=== PATIENT | male | born 1960 | race Caucasian/White ===

== ENCOUNTER → 2017-01-31 | Outpatient (CLI) | payer BC ==
[2017-01-31 12:40] LABS: CH 31.5; HDW 3.15; HGB 13.5 gm/dL (13.0-17.5); MCH 30.4 pg (25.0-35.0); MCHC 34.6 g/dL (31.0-37.0); MCV 87.9 fL (80.0-100.0); Mean Platelet Volume 7.3; RBC 4.43 m/uL (4.30-5.90); RDW 13.9 % (11.5-15.5); WBC 5.3 k/uL (3.8-10.6)
[2017-01-31 12:43] LABS: Appearance,Urine Clear (Clear); Bilirubin,Urine Negative (Negative); Glucose,Urine (UA) Negative (Negative); Ketones,Urine Negative (Negative); Leukocyte Esterase,Urine Negative (Negative); Nitrite,Urine Negative (Negative); PH, Urine 6.5 (5.0-8.0); Protein,Urine Negative (Negative); Specific Gravity,Urine 1.019 (1.001-1.035); UA Billing (MACRO vs. MICRO) CHEM; Urobilinogen,Urine <2.0 mg/dL (<2.0)
[2017-01-31 12:55] LABS: ALT 46 U/L (21-72); AST 31 U/L (17-59); Alkaline Phosphatase 64 U/L (38-126); Anion Gap 10 mmol/L; Blood Urea Nitrogen 22 mg/dL (9-20); Calcium 8.8 mg/dL (8.4-10.2); Carbon Dioxide 29 mmol/L (22-30); Chloride 105 mmol/L (98-107); Cholesterol 148 mg/dL (<200); Glucose 95 mg/dL (74-99); HDL Cholesterol 48 mg/dL (40-60); Non-African American GFR(MDRD) >60 (>60 ml/min/1.73 sqM); Potassium 3.1 mmol/L (3.5-5.1); Sodium 144 mmol/L (137-145); Total Bilirubin 1.3 mg/dL (0.2-1.3); Total Protein 7.1 g/dL (6.3-8.2); Triglycerides 106 mg/dL (<150)
[2017-01-31 14:04] LABS: Prostate Specific Antigen 1.87 ng/mL (0.00-4.00)
== END ==
LOC: LABWHC1 12:15
PROVIDERS: ATTEND Family Medicine
DX: Z00.01 Encounter for general adult medical examination with abnormal findings (principal); I10 Essential (primary) hypertension
CPT/HCPCS: 36415; 80053; 80061; 81003; 84153; 84439; 84443; 85027

== ENCOUNTER 2017-08-09 14:42 | Inpatient (IN) | payer BC ==
[2017-08-09] MEDS ORDERED: SODIUM CHLORIDE 0.9% 500 ML IV STA (14:45)
[2017-08-09] MEDS ORDERED: IPRATROPIUM-ALBUTEROL 3 ML NEB INHALATION STA (14:45)
[2017-08-09] MEDS ORDERED: DEXAMETHASONE SOD PHOSPHATE 10 MG/ML 1 ML VIAL IV STA (14:56)
--- NOTE | 2017-08-09 14:56 | ED ---
General Adult HPI - General Stated complaint: Difficulty Breathing Time Seen by Provider: 08/09/17 14:44 Source: patient, family, EMS, RN notes reviewed Mode of arrival: EMS Limitations: no limitations - History of Present Illness Initial comments: 56-year-old male presents for evaluation of cough and difficult to breathing. Patient states he's had these symptoms for approximately 3 days. Also had some nasal congestion. His cough is been dry, worse while lying flat. Patient did return from [place], along airplane flights. He states his symptoms began prior to this. He was sent from urgent care today with low oxygen level, his oxygen was 90-92% on room air. He has no known history of asthma or COPD. Patient does report subjective fever and chills. Denies chest pain. States his nasal congestion is improving but cough and shortness of breath has been worsening. Only past medical history is hypertension. - Related Data Home Medications Medication Instructions Recorded Confirmed Ascorbic Acid [Vitamin C] 500 mg PO DAILY 08/09/17 08/09/17 Losartan/Hydrochlorothiazide 1 tab PO DAILY 08/09/17 08/09/17 [Losartan-Hctz 100-25 mg Tab] Metoprolol Tartrate [Lopressor] 50 mg PO HS 08/09/17 08/09/17 [employer]-3 Fatty Acids/Fish Oil [Fish 1 cap PO DAILY 08/09/17 08/09/17 Oil 1,000 mg Softgel] Vitamin B Complex 1 cap PO DAILY 08/09/17 08/09/17 Vitamin E (Dl,Tocopheryl Acet) 400 unit PO DAILY 08/09/17 08/09/17 [Vitamin E] amLODIPine [Norvasc] 10 mg PO DAILY 08/09/17 08/09/17 Allergies Allergy/AdvReac Type Severity Reaction Status Date / Time No Known Allergies Allergy Verified 08/09/17 15:13 Review of Systems ROS Statement: Those systems with pertinent positive or pertinent negative responses have been documented in the HPI. ROS Other: All systems not noted in ROS Statement are negative. Past Medical History Past Medical History: Hypertension History of Any Multi-Drug Resistant Organisms: None Reported Past Surgical History: No Surgical Hx Reported Past Anesthesia/Blood Transfusion Reactions: No Reported Reaction Past Psychological History: No Psychological Hx Reported Smoking Status: Never smoker Past Alcohol Use History: None Reported Past Drug Use History: None Reported - Past Family History Father Family Medical History: Myocardial Infarction ([place]) Additional Family Medical History / Comment(s): [place] at age 50 Mother Family Medical History: Diabetes Mellitus General Exam Limitations: no limitations General appearance: alert, in no apparent distress Head exam: Present: atraumatic, normocephalic Eye exam: Present: normal appearance, PERRL ENT exam: Present: mucous membranes dry Neck exam: Present: normal inspection. Absent: tenderness, meningismus Respiratory exam: Present: respiratory distress, wheezes, rhonchi, prolonged expiratory Cardiovascular Exam: Present: normal rhythm, tachycardia GI/Abdominal exam: Present: soft. Absent: distended, tenderness Extremities exam: Present: normal inspection, full ROM, normal capillary refill. Absent: pedal edema, calf tenderness Back exam: Present: normal inspection Neurological exam: Present: alert, oriented X3, CN II-XII intact. Absent: motor sensory deficit Psychiatric exam: Present: normal affect, normal mood Skin exam: Present: warm, dry, intact. Absent: cyanosis, diaphoretic Course Vital Signs 08/09/17 08/09/17 08/09/17 14:45 15:33 15:43 Temperature 99.3 F Pulse Rate 101 H 91 100 Respiratory 18 Rate Blood Pressure 163/72 O2 Sat by Pulse 95 Oximetry 08/09/17 15:50 Temperature Pulse Rate 67 Respiratory 18 Rate Blood Pressure 141/63 O2 Sat by Pulse 94 L Oximetry - Reevaluation(s) Reevaluation #1: 08/09/17 16:52 Patient continues to require simple oxygen while the emergency department. Pulse ox 93-95 on 2 L Medical Decision Making - Medical Decision Making 56-year-old presenting with cough and congestion. Patient was at urgent care found to be hypoxic. Transferred for further evaluation. Patient does have a spastic cough, wheezing throughout both lung rossi. Chest x-ray is negative for focal pneumonia. Patient did have recent travel from [place], d-dimer is negative. No concern at this time for pulmonary embolism. Patient does improve with nebulized topical natural. He is given IV steroids and emergency prompt or laboratory studies reveal a serum potassium 2.7 which is replaced both orally and IV. Patient will benefit from observation with continued advised albuterol, steroids, potassium replacement and reevaluation in the morning. Diagnosis: Acute bronchitis with hypoxia, hypokalemia - Lab Data Result diagrams: 08/09/17 15:01 08/09/17 15:01 Lab Results 08/09/17 08/09/17 08/09/17 Range/Units 15:01 15:01 15:01 WBC 9.6 (3.8-10.6) k/uL RBC 4.62 (4.30-5.90) m/uL Hgb 14.3 (13.0-17.5) gm/dL Hct 39.8 (39.0-53.0) % MCV 86.2 (80.0-100.0) fL MCH 30.9 (25.0-35.0) pg MCHC 35.8 (31.0-37.0) g/dL RDW 13.7 (11.5-15.5) % Plt Count 389 (150-450) k/uL Neutrophils % 71 % Lymphocytes % 17 % Monocytes % 6 % Eosinophils % 3 % Basophils % 0 % Neutrophils # 6.8 (1.3-7.7) k/uL Lymphocytes # 1.6 (1.0-4.8) k/uL Monocytes # 0.6 (0-1.0) k/uL Eosinophils # 0.3 (0-0.7) k/uL Basophils # 0.0 (0-0.2) k/uL PT (9.0-12.0) sec INR (<1.2) APTT (22.0-30.0) sec D-Dimer (<0.60) mg/L FEU Sodium 140 (137-145) mmol/L Potassium 2.7 L* (3.5-5.1) mmol/L Chloride 101 (98-107) mmol/L Carbon Dioxide 29 (22-30) mmol/L Anion Gap 10 mmol/L BUN 17 (9-20) mg/dL Creatinine 1.07 (0.66-1.25) mg/dL Est GFR (MDRD) Af Amer >60 (>60 ml/min/1.73 sqM) Est GFR (MDRD) Non-Af >60 (>60 ml/min/1.73 sqM) Glucose 123 H (74-99) mg/dL Calcium 8.5 (8.4-10.2) mg/dL Magnesium 2.1 (1.6-2.3) mg/dL Total Bilirubin 1.5 H (0.2-1.3) mg/dL AST 28 (17-59) U/L ALT 38 (21-72) U/L Alkaline Phosphatase 82 (38-126) U/L Total Creatine Kinase 109 (55-170) U/L CK-MB (CK-2) <0.2 (0.0-2.4) ng/mL CK-MB (CK-2) Rel Index Troponin I <0.012 (0.000-0.034) ng/mL NT-Pro-B Natriuret Pep pg/mL Total Protein 7.0 (6.3-8.2) g/dL Albumin 4.0 (3.5-5.0) g/dL 08/09/17 08/09/17 Range/Units 15:01 15:01 WBC (3.8-10.6) k/uL RBC (4.30-5.90) m/uL Hgb (13.0-17.5) gm/dL Hct (39.0-53.0) % MCV (80.0-100.0) fL MCH (25.0-35.0) pg MCHC (31.0-37.0) g/dL RDW (11.5-15.5) % Plt Count (150-450) k/uL Neutrophils % % Lymphocytes % % Monocytes % % Eosinophils % % Basophils % % Neutrophils # (1.3-7.7) k/uL Lymphocytes # (1.0-4.8) k/uL Monocytes # (0-1.0) k/uL Eosinophils # (0-0.7) k/uL Basophils # (0-0.2) k/uL PT 10.3 (9.0-12.0) sec INR 1.0 (<1.2) APTT 25.0 (22.0-30.0) sec D-Dimer 0.55 (<0.60) mg/L FEU Sodium (137-145) mmol/L Potassium (3.5-5.1) mmol/L Chloride (98-107) mmol/L Carbon Dioxide (22-30) mmol/L Anion Gap mmol/L BUN (9-20) mg/dL Creatinine (0.66-1.25) mg/dL Est GFR (MDRD) Af Amer (>60 ml/min/1.73 sqM) Est GFR (MDRD) Non-Af (>60 ml/min/1.73 sqM) Glucose (74-99) mg/dL Calcium (8.4-10.2) mg/dL Magnesium (1.6-2.3) mg/dL Total Bilirubin (0.2-1.3) mg/dL AST (17-59) U/L ALT (21-72) U/L Alkaline Phosphatase (38-126) U/L Total Creatine Kinase (55-170) U/L CK-MB (CK-2) (0.0-2.4) ng/mL CK-MB (CK-2) Rel Index Troponin I (0.000-0.034) ng/mL NT-Pro-B Natriuret Pep 573 pg/mL Total Protein (6.3-8.2) g/dL Albumin (3.5-5.0) g/dL Disposition Clinical Impression: Acute bronchitis, Hypokalemia Disposition: ADMITTED IP TO THIS HOSP Condition: Stable Referrals: Sanjeev Spivey DO [Primary Care Provider] - 1-2 days Decision to Admit Reason: Admit from EC Decision Date: 08/09/17 Decision Time: 16:54
[2017-08-09] MEDS: SODIUM CHLORIDE 0.9% 1,000 ML IV SCH (15:06)
[2017-08-09 15:15] LABS: Basophils % (A) 0 %; CH 31.5; CHCM 36.7; Eosinophils # (A) 0.3 k/uL (0-0.7); Eosinophils % (A) 3 %; HCT 39.8 % (39.0-53.0); HDW 3.21; HGB 14.3 gm/dL (13.0-17.5); Luc # (Auto) 0.27; Luc % (Auto) 3; Lymphocytes # (A) 1.6 k/uL (1.0-4.8); Lymphocytes % (A) 17 %; MCH 30.9 pg (25.0-35.0); MCHC 35.8 g/dL (31.0-37.0); MCV 86.2 fL (80.0-100.0); Mean Platelet Volume 7.9; Monocytes # (A) 0.6 k/uL (0-1.0); Monocytes % (A) 6 %; Neutrophils # (A) 6.8 k/uL (1.3-7.7); Neutrophils % (A) 71 %; RBC 4.62 m/uL (4.30-5.90); RDW 13.7 % (11.5-15.5); WBC 9.6 k/uL (3.8-10.6); WBC (Perox) 9.97
[2017-08-09 15:25] LABS: Prothrombin Time 10.3 sec (9.0-12.0)
--- NOTE | 2017-08-09 15:26 | XR ---
EXAMINATION TYPE: XR chest 2V DATE OF EXAM: 08/09/2017 COMPARISON: 05/13 15 HISTORY: Short of breath and cough TECHNIQUE: Frontal and lateral views of the chest are obtained. FINDINGS: Heart and mediastinum are normal. Lungs are clear. Diaphragm is normal. There is mild spur ring in the thoracic spine. IMPRESSION: No cardiopulmonary disease. No change.
[2017-08-09 15:35] LABS: ALT 38 U/L (21-72); AST 28 U/L (17-59); Alkaline Phosphatase 82 U/L (38-126); Anion Gap 10 mmol/L; Blood Urea Nitrogen 17 mg/dL (9-20); Calcium 8.5 mg/dL (8.4-10.2); Carbon Dioxide 29 mmol/L (22-30); Chloride 101 mmol/L (98-107); Glucose 123 mg/dL (74-99); Magnesium 2.1 mg/dL (1.6-2.3); Non-African American GFR(MDRD) >60 (>60 ml/min/1.73 sqM); Sodium 140 mmol/L (137-145); Total Bilirubin 1.5 mg/dL (0.2-1.3)
[2017-08-09 15:43] LABS: Potassium 2.7 mmol/L (3.5-5.1)
[2017-08-09 15:52] LABS: Creatine Kinase 109 U/L (55-170)
[2017-08-09 16:05] LABS: Creatine Kinase MB <0.2 ng/mL (0.0-2.4); Troponin I <0.012 ng/mL (0.000-0.034)
[2017-08-09] MEDS: POTASSIUM CHLORIDE 10 MEQ, LIDOCAINE 2% INJ 10 MG in SODIUM CHLORIDE 0.9% 100 ML IVPB SCH ×4 (16:24→21:05)
[2017-08-09] MEDS ORDERED: POTASSIUM CHLORIDE ER 20 MEQ TAB.ER PO STA (16:46)
[2017-08-09] MEDS: AZITHROMYCIN 500 MG TAB PO SCH (18:49)
[2017-08-09] MEDS: METOPROLOL TARTRATE 50 MG TAB PO SCH (21:05)
[2017-08-09] MEDS: guaiFENesin 600 MG TABLET.ER PO SCH (21:06)
[2017-08-09] MEDS: IPRATROPIUM-ALBUTEROL 3 ML NEB INHALATION SCH (21:11)
[2017-08-10] MEDS: SODIUM CHLORIDE 0.9% 1,000 ML IV SCH ×2 (04:07→18:49)
[2017-08-10] MEDS: IPRATROPIUM-ALBUTEROL 3 ML NEB INHALATION SCH ×4 (07:27→20:43)
[2017-08-10] MEDS: predniSONE 20 MG TAB PO SCH (08:46)
[2017-08-10] MEDS: guaiFENesin 600 MG TABLET.ER PO SCH ×3 (08:46→21:48)
[2017-08-10] MEDS: LOSARTAN-HCTZ 50-12.5 MG 1 EACH TAB PO SCH (08:46)
[2017-08-10] MEDS: amLODIPine 10 MG TAB PO SCH (08:46)
[2017-08-10] MEDS: AZITHROMYCIN 500 MG TAB PO SCH (08:46)
[2017-08-10 09:31] LABS: Basophils % (A) 0 %; CH 31.2; CHCM 35.2; Eosinophils % (A) 0 %; HCT 40.5 % (39.0-53.0); HDW 3.21; HGB 14.1 gm/dL (13.0-17.5); Luc # (Auto) 0.05; Luc % (Auto) 0; Lymphocytes # (A) 0.7 k/uL (1.0-4.8); Lymphocytes % (A) 5 %; MCHC 34.7 g/dL (31.0-37.0); MCV 89.3 fL (80.0-100.0); Mean Platelet Volume 7.9; Monocytes # (A) 0.5 k/uL (0-1.0); Monocytes % (A) 3 %; Neutrophils % (A) 92 %; RBC 4.53 m/uL (4.30-5.90); RDW 13.9 % (11.5-15.5); WBC 15.2 k/uL (3.8-10.6); WBC (Perox) 15.88
[2017-08-10 09:49] LABS: ALT 35 U/L (21-72); AST 25 U/L (17-59); Alkaline Phosphatase 74 U/L (38-126); Anion Gap 13 mmol/L; Blood Urea Nitrogen 22 mg/dL (9-20); Calcium 8.8 mg/dL (8.4-10.2); Carbon Dioxide 23 mmol/L (22-30); Chloride 108 mmol/L (98-107); Glucose 207 mg/dL (74-99); Non-African American GFR(MDRD) >60 (>60 ml/min/1.73 sqM); Sodium 144 mmol/L (137-145); Total Bilirubin 0.7 mg/dL (0.2-1.3); Total Protein 6.6 g/dL (6.3-8.2)
[2017-08-10 09:59] LABS: Potassium 2.8 mmol/L (3.5-5.1)
[2017-08-10] MEDS ORDERED: Potassium Replacement Protocol 1 EACH MISC MISCELLANE PRN (10:25)
[2017-08-10] MEDS: POTASSIUM CHLORIDE ER 20 MEQ TAB.ER PO SCH ×3 (11:35→15:36)
--- NOTE | 2017-08-10 12:52 | P.CNPUL ---
History of Present Illness Consult date: 08/10/17 Reason for consult: dyspnea, cough Chief complaint: Shortness of breath History of present illness: This is a 56-year-old male who presented to the emergency department from an urgent care clinic. The patient states that he was short of breath and coughing. He went to the urgent care and his oxygen saturation was 87% and he was told he needed to come to the emergency room. The patient states he was recently traveling and just got home from [place] 3 days ago. He states he started feeling ill 4 days ago. He did have chills and sweats at home but denies fever. He does complain of wheezing and chest tightness. He has a cough which is nonproductive of phlegm. He does have sinus and chest congestion. He is a lifelong never smoker. 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 He does have a dog in the home. He has occasional seasonal ALLERGIES. He does not take anything for ALLERGIES. He has never been hospitalized for his breathing. He has no history of asthma or COPD. He has never had a pulmonary function test or seen a dust operator in the past. Review of Systems All systems: negative Past Medical History Past Medical History: Hypertension History of Any Multi-Drug Resistant Organisms: None Reported Past Surgical History: No Surgical Hx Reported Past Anesthesia/Blood Transfusion Reactions: No Reported Reaction Past Psychological History: No Psychological Hx Reported Smoking Status: Never smoker Past Alcohol Use History: None Reported Past Drug Use History: None Reported - Past Family History Father Family Medical History: Myocardial Infarction ([place]) Additional Family Medical History / Comment(s): [place] at age 50 Mother Family Medical History: Diabetes Mellitus Medications and Allergies Home Medications Medication Instructions Recorded Confirmed Type Ascorbic Acid [Vitamin C] 500 mg PO DAILY 08/09/17 08/09/17 History Losartan/Hydrochlorothiazide 1 tab PO DAILY 08/09/17 08/09/17 History [Losartan-Hctz 100-25 mg Tab] Metoprolol Tartrate [Lopressor] 50 mg PO HS 08/09/17 08/09/17 History [employer]-3 Fatty Acids/Fish Oil [Fish 1 cap PO DAILY 08/09/17 08/09/17 History Oil 1,000 mg Softgel] Vitamin B Complex 1 cap PO DAILY 08/09/17 08/09/17 History Vitamin E (Dl,Tocopheryl Acet) 400 unit PO DAILY 08/09/17 08/09/17 History [Vitamin E] amLODIPine [Norvasc] 10 mg PO DAILY 08/09/17 08/09/17 History Allergies Allergy/AdvReac Type Severity Reaction Status Date / Time No Known Allergies Allergy Verified 08/09/17 15:13 Physical Exam Osteopathic Statement: *. No significant issues noted on an osteopathic structural exam other than those noted in the History and Physical/Consult. Vitals: Vital Signs Temp Pulse Pulse Resp BP BP Pulse Ox 08/10/17 12:00 97.3 F L 89 18 169/72 93 L 08/10/17 11:04 84 08/10/17 10:58 76 08/10/17 08:00 82 18 08/10/17 07:49 97.8 F 82 18 144/69 96 08/10/17 07:36 72 08/10/17 07:28 72 08/10/17 04:00 97.6 F 68 16 145/79 96 08/10/17 00:00 97.6 F 80 18 127/62 95 08/09/17 21:19 88 08/09/17 21:11 80 08/09/17 19:44 18 08/09/17 18:00 97.3 F L 18 142/63 94 L 08/09/17 17:47 97.6 F 82 18 133/59 92 L 08/09/17 15:50 67 18 141/63 94 L 08/09/17 15:43 100 08/09/17 15:33 91 08/09/17 14:45 99.3 F 101 H 18 163/72 95 Intake and Output 08/09/17 08/10/17 08/10/17 22:59 06:59 14:59 Intake Total 240 Balance 240 Intake: Oral 240 Other: Voiding Method Toilet Toilet Toilet Gen.: Patient is alert and oriented 3, no acute distress Cardiovascular: Regular rate and rhythm, S1/S2 Lungs: Diffuse bilateral wheezing Abdomen: Soft nontender nondistended positive bowel sounds Extremities: No edema Results - Laboratory Findings CBC and BMP: 08/10/17 08:49 08/10/17 08:49 PT/INR, D-dimer PT 10.3 sec (9.0-12.0) 08/09/17 15:01 INR 1.0 (<1.2) 08/09/17 15:01 D-Dimer 0.55 mg/L FEU (<0.60) 08/09/17 15:01 Abnormal lab findings: Abnormal Labs 08/09/17 08/10/17 08/10/17 15:01 08:49 08:49 WBC 15.2 H Neutrophils # 14.0 H Lymphocytes # 0.7 L Potassium 2.7 L* 2.8 L* Chloride 108 H BUN 22 H Glucose 123 H 207 H Total Bilirubin 1.5 H - Diagnostic Findings Chest x-ray: report reviewed, image reviewed Assessment and Plan Plan: Acute hypoxemia Acute bronchitis Bronchospasm Dyspnea Cough Recent travel to [place] Seasonal ALLERGIES Hypertension Leukocytosis likely reactive to steroids Obesity Hypokalemia Maintain saturation greater than equal to 90% Add Pulmicort Continue duo nebs Mucinex Check IgE IVF Replace K Sputum culture if able to expectorate Repeat chest x-ray in a.m. GI and DVT prophylaxis Negative d-dimer no need for CT PE protocol Encourage ambulation Incentive spirometry Flutter therapy Thank you for this consultation we'll continue to follow along
[2017-08-10] MEDS ORDERED: OSELTAMIVIR 75 MG CAP PO SCH (14:15)
--- NOTE | 2017-08-10 17:55 | P.HPIM ---
History of Present Illness H&P Date: 08/10/17 Chief Complaint: cough and shortness of breath 54-year-old gentleman patient of Dr. Spivey. He has underlying history of controlled hypertension and obesity, who was last admitted for shortness of breath, fever and dry cough in 2014 presents with similar symptoms of nonproductive cough associated with shortness of breath, chills and generalized weakness following his trip to [place]. 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 Patient denies any sick contact. He does endorse sinus pressure, increased coryza with generalized weakness before having symptoms of cough. Patient is a non smoker and denies any h/o COPD/ asthma. Patient doesnot have a documented fever. Review of Systems Constitutional: Reports chills, Reports fever, Reports lethargy, Reports malaise , Reports night sweats, Reports poor appetite, Reports sweats, Reports weakness , Denies anorexia, Denies weight loss Eyes: denies blurred vision, denies bulging eye, denies decreased vision, denies diplopia, denies dry eye, denies itching, denies pain, denies photophobia , denies loss of peripheral vision Ears, nose, mouth and throat: Reports headache, Reports hoarseness, Reports nasal congestion, Reports post-nasal drip, Reports sore throat, Denies ant. neck pain, Denies dental pain, Denies sinus pressure Cardiovascular: Reports shortness of breath, Denies chest pain, Denies dyspnea on exertion, Denies irregular heart beat, Denies lightheadedness, Denies orthopnea, Denies palpitations Respiratory: Reports cough with sputum, Denies snoring, Denies wheezing Gastrointestinal: Denies abdominal pain, Denies BRBPR, Denies change in bowel habits, Denies coffee ground emesis, Denies dyspepsia, Denies heartburn Musculoskeletal: Denies low back pain, Denies morning stiffness, Denies muscle cramps, Denies muscle weakness, Denies neck pain, Denies neck stiffness Integumentary: Denies change in hair/nails, Denies lesions, Denies sores Neurological: Denies aphasia, Denies memory loss, Denies motor disturbance, Denies numbness Psychiatric: Reports change in appetite, Denies change in sleep habits Endocrine: Reports fatigue Past Medical History Past Medical History: Hypertension (i ssiter with unknown medical history ) History of Any Multi-Drug Resistant Organisms: None Reported Past Surgical History: No Surgical Hx Reported Past Anesthesia/Blood Transfusion Reactions: No Reported Reaction Past Psychological History: No Psychological Hx Reported Smoking Status: Never smoker Past Alcohol Use History: None Reported Past Drug Use History: None Reported - Past Family History Father Family Medical History: Myocardial Infarction ([place]) (at age 50 ) Additional Family Medical History / Comment(s): [place] at age 50 Mother Family Medical History: Diabetes Mellitus Medications and Allergies Home Medications Medication Instructions Recorded Confirmed Type Ascorbic Acid [Vitamin C] 500 mg PO DAILY 08/09/17 08/09/17 History Losartan/Hydrochlorothiazide 1 tab PO DAILY 08/09/17 08/09/17 History [Losartan-Hctz 100-25 mg Tab] Metoprolol Tartrate [Lopressor] 50 mg PO HS 08/09/17 08/09/17 History [employer]-3 Fatty Acids/Fish Oil [Fish 1 cap PO DAILY 08/09/17 08/09/17 History Oil 1,000 mg Softgel] Vitamin B Complex 1 cap PO DAILY 08/09/17 08/09/17 History Vitamin E (Dl,Tocopheryl Acet) 400 unit PO DAILY 08/09/17 08/09/17 History [Vitamin E] amLODIPine [Norvasc] 10 mg PO DAILY 08/09/17 08/09/17 History Allergies Allergy/AdvReac Type Severity Reaction Status Date / Time No Known Allergies Allergy Verified 08/09/17 15:13 Physical Exam Vitals: Vital Signs Temp Pulse Pulse Resp BP BP Pulse Ox 08/10/17 16:31 80 08/10/17 16:20 80 08/10/17 16:00 97.1 F L 85 18 129/61 95 08/10/17 12:00 97.3 F L 89 18 169/72 93 L 08/10/17 11:04 84 08/10/17 10:58 76 08/10/17 08:00 82 18 08/10/17 07:49 97.8 F 82 18 144/69 96 08/10/17 07:36 72 08/10/17 07:28 72 08/10/17 04:00 97.6 F 68 16 145/79 96 08/10/17 00:00 97.6 F 80 18 127/62 95 08/09/17 21:19 88 08/09/17 21:11 80 08/09/17 19:44 18 08/09/17 18:00 97.3 F L 18 142/63 94 L 08/09/17 17:47 97.6 F 82 18 133/59 92 L Intake and Output 08/10/17 08/10/17 08/10/17 06:59 14:59 22:59 Intake Total 600 Balance 600 Intake: Oral 600 Other: Voiding Method Toilet Toilet Toilet - Constitutional General appearance: average body habitus, cooperative, mild distress - EENT Eyes: EOMI, PERRLA, no photophobia, no ptosis, normal appearance ENT: hearing grossly normal, no tonsillar exudates, no tonsillar swelling - Neck Neck: no lymphadenopathy, no normal ROM, no rigidity Carotids: bilateral: upstroke normal Thyroid: negative: normal size - Respiratory Respiratory: bilateral: diminished, rales, rhonchi, negative: wheezing - Cardiovascular Rhythm: regular Heart sounds: normal: S1, S2 Abnormal Heart Sounds: no systolic murmur, no diastolic murmur - Gastrointestinal General gastrointestinal: normal bowel sounds, no organomegaly, soft, no tenderness - Musculoskeletal Musculoskeletal: gait normal, generalized weakness - Psychiatric Psychiatric: A&O x's 3, appropriate affect Results CBC & Chem 7: 08/10/17 08:49 08/10/17 08:49 Labs: Abnormal Lab Results - Last 24 Hours (Table) 08/10/17 08/10/17 Range/Units 08:49 08:49 WBC 15.2 H (3.8-10.6) k/uL Neutrophils # 14.0 H (1.3-7.7) k/uL Lymphocytes # 0.7 L (1.0-4.8) k/uL Potassium 2.8 L* (3.5-5.1) mmol/L Chloride 108 H (98-107) mmol/L BUN 22 H (9-20) mg/dL Glucose 207 H (74-99) mg/dL Microbiology - Last 24 Hours (Table) 08/09/17 15:01 Blood Culture - Preliminary Blood No Growth after 24 hours Thrombosis Risk Factor Assmnt - Choose All That Apply Each Factor Represents 1 point: Age 41-60 years Other Risk Factors: No Other congenital or acquired thrombophilia - If yes, enter type in comment: No Thrombosis Risk Factor Assessment Total Risk Factor Score: 1 Thrombosis Risk Factor Assessment Level: Low Risk Assessment and Plan Plan: 56 years old male with past medical history of hypertension presents with shortness of breath and cough secondary to bronchitis 1 acute bronchitis - Continue on ceftriaxone and azithromycin - Respiratory cultures - Albuterol and Atrovent when necessary shortness of breath - Influenza pending, Tamiflu 75 twice a day empirically - Comprehensive viral panel pending - Continue contact precautions - Incentive spirometry - CBC next am 2. Hypertension- continue metoprolol, lisinopril and HCTZ 3. DVT prophylaxis- heparin every 8 subcu 4. Hypokalemia - continue to repletion per protocol, CMP next a.m. 5. Disposition- likely discharge tomorrow Full code
--- NOTE | 2017-08-10 18:27 | ECHOF ---
Referral Reason:shortness of breath MEASUREMENTS -------- HEIGHT: 172.7 cm WEIGHT: 103.9 kg BP: 146/79 RVIDd: 3.3 cm (< 3.3) IVSd: 1.4 cm (0.6 - 1.1) LVIDd: 4.9 cm (3.9 - 5.3) LVPWd: 1.4 cm (0.6 - 1.1) IVSs: 2.4 cm LVIDs: 2.9 cm LVPWs: 1.7 cm LA Diam: 3.8 cm (2.7 - 3.8) LAESV Index (A-L): 30.27 ml/m Ao Diam: 3.5 cm (2.0 - 3.7) AV Cusp: 2.5 cm (1.5 - 2.6) MV EXCURSION: 12.842 mm (> 18.000) MV EF SLOPE: 74 mm/s (70 - 150) EPSS: 0.5 cm MV E Danny: 0.98 m/s MV DecT: 240 ms MV A Danny: 0.67 m/s MV E/A Ratio: 1.46 AV maxP.13 mmHg AV meanP.64 mmHg RAP: 5.00 mmHg RVSP: 36.41 mmHg FINDINGS -------- Sinus rhythm. This was a technically good study. The left ventricular size is normal. There is moderate concentric left ventricular hypertrophy. Overall left ventricular systolic function is normal with, an EF between 60 - 65 %. The right ventricle is mildly enlarged. LA is midly dilated 29-33ml/m2. The right atrium is normal in size. The aortic valve is trileaflet and appears structurally normal. Peak/mean gradient across the Aortic Valve is 14.13mmHg / 7.64mmHg. Mild mitral annular calcification present. Mild tricuspid regurgitation present. There is mild pulmonary hypertension. The right ventricular systolic pressure, as measured by Doppler, is 36.41mmHg. The pulmonic valve is normal. The aortic root size is normal. Normal inferior vena cava with normal inspiratory collapse consistent with estimated right atrial pressure of 5 mmHg. There is no pericardial effusion. CONCLUSIONS -------- 1. Sinus rhythm. 2. Peak/mean gradient across the Aortic Valve is 14.13mmHg / 7.64mmHg. 3. Mild mitral annular calcification present. 4. Mild tricuspid regurgitation present. 5. There is mild pulmonary hypertension. 6. The right ventricular systolic pressure, as measured by Doppler, is 36.41mmHg. 7. The pulmonic valve is normal. 8. The aortic root size is normal. 9. Normal inferior vena cava with normal inspiratory collapse consistent with estimated right atrial pressure of 5 mmHg. 10. There is no pericardial effusion. 11. This was a technically good study. 12. The left ventricular size is normal. 13. There is moderate concentric left ventricular hypertrophy. 14. Overall left ventricular systolic function is normal with, an EF between 60 - 65 %. 15. The right ventricle is mildly enlarged. 16. LA is midly dilated 29-33ml/m2. 17. The right atrium is normal in size. 18. The aortic valve is trileaflet and appears structurally normal. HUMAN RESOURCES BENEFITS ADMINISTRATOR: Tamika eRcio RDCS
[2017-08-10] MEDS: BUDESONIDE 0.5 MG/2 ML NEBU INHALATION SCH (20:43)
[2017-08-10] MEDS: METOPROLOL TARTRATE 50 MG TAB PO SCH (21:48)
[2017-08-10] MEDS: HEPARIN SODIUM,PORCINE 5,000 UNIT/ML 1 ML VIAL SQ SCH (23:07)
[2017-08-11] MEDS: HEPARIN SODIUM,PORCINE 5,000 UNIT/ML 1 ML VIAL SQ SCH ×3 (08:27→23:35)
[2017-08-11] MEDS: LOSARTAN-HCTZ 50-12.5 MG 1 EACH TAB PO SCH (08:29)
[2017-08-11] MEDS: AZITHROMYCIN 500 MG TAB PO SCH (08:30)
[2017-08-11] MEDS: amLODIPine 10 MG TAB PO SCH (08:30)
[2017-08-11] MEDS: predniSONE 20 MG TAB PO SCH (08:30)
[2017-08-11] MEDS: guaiFENesin 600 MG TABLET.ER PO SCH ×3 (08:30→20:54)
[2017-08-11] MEDS: ASCORBIC ACID 500 MG TAB PO SCH (08:30)
[2017-08-11] MEDS ORDERED: NON-FORMULARY DRUG (Omega-3 Fatty Acids/Fish Oil [Fish Oil 1,000 Mg Softgel] 1 CAP) PO SCH (09:00)
[2017-08-11] MEDS: BUDESONIDE 0.5 MG/2 ML NEBU INHALATION SCH ×2 (09:17→19:53)
[2017-08-11] MEDS: IPRATROPIUM-ALBUTEROL 3 ML NEB INHALATION SCH ×4 (09:17→19:53)
[2017-08-11] MEDS: SODIUM CHLORIDE 0.9% 1,000 ML IV SCH ×2 (09:31→20:54)
[2017-08-11 10:57] LABS: ALT 42 U/L (21-72); AST 23 U/L (17-59); Alkaline Phosphatase 65 U/L (38-126); Anion Gap 12 mmol/L; Blood Urea Nitrogen 29 mg/dL (9-20); Calcium 8.5 mg/dL (8.4-10.2); Carbon Dioxide 23 mmol/L (22-30); Chloride 111 mmol/L (98-107); Glucose 130 mg/dL (74-99); Non-African American GFR(MDRD) >60 (>60 ml/min/1.73 sqM); Sodium 146 mmol/L (137-145); Total Bilirubin 0.4 mg/dL (0.2-1.3); Total Protein 6.4 g/dL (6.3-8.2)
[2017-08-11 11:06] LABS: Potassium 2.9 mmol/L (3.5-5.1)
[2017-08-11] MEDS ORDERED: Potassium Replacement Protocol 1 EACH MISC MISCELLANE PRN (11:06)
--- NOTE | 2017-08-11 11:20 | XR ---
EXAMINATION TYPE: XR chest 2V DATE OF EXAM: 08/11/2017 COMPARISON: NONE INDICATION: Cough, productive TECHNIQUE: Frontal and lateral views of the chest are obtained. FINDINGS: The heart size is normal. The pulmonary vasculature is normal. The lungs are clear. IMPRESSION: 1. No acute pulmonary process.
[2017-08-11] MEDS: VITAMIN E (DL,TOCOPHERYL ACET) 400 UNIT CAP PO SCH (11:38)
[2017-08-11] MEDS: B COMPLEX-VIT C-VIT E-ZINC 1 EACH TAB PO SCH (11:38)
[2017-08-11] MEDS: POTASSIUM CHLORIDE ER 20 MEQ TAB.ER PO SCH ×3 (11:38→20:54)
[2017-08-11] MEDS ORDERED: POTASSIUM CHLORIDE ER 20 MEQ TAB.ER PO STA (12:31)
--- NOTE | 2017-08-11 12:37 | P.PN ---
Subjective 54-year-old gentleman patient of Dr. Spivey. He has underlying history of controlled hypertension and obesity, who was last admitted for shortness of breath, fever and dry cough in 2014 presents with similar symptoms of nonproductive cough associated with shortness of breath, chills and generalized weakness following his trip to [place]. 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 Patient denies any sick contact. He does endorse sinus pressure, increased coryza with generalized weakness before having symptoms of cough. Patient is a non smoker and denies any h/o COPD/ asthma. Patient doesnot have a documented fever. 08/11: Patient is having shortness of breath when he lays down. He denies cough. Pulmonary medicine has placed him back on Solu-Medrol 60 mg IV every 6 hours. Flu testing came back negative and he was positive for rhinovirus. Tamiflu was discontinued. Patient's potassium remains low at 2.9 which will be replaced and hydrochlorothiazide discontinued. Patient will be placed on scheduled potassium as well. Objective - Vital Signs Vital signs: Vital Signs Temp 96.8 F L 08/11/17 07:00 Pulse 67 08/11/17 07:00 Resp 19 08/11/17 07:00 BP 154/83 08/11/17 07:00 Pulse Ox 97 08/11/17 07:00 Intake & Output 08/10/17 08/11/17 08/11/17 18:59 06:59 18:59 Intake Total 600 Balance 600 Intake: Oral 600 Other: Voiding Method Toilet # Voids 2 - Exam General appearance: average body habitus, cooperative, mild distress - EENT Eyes: EOMI, PERRLA, no photophobia, no ptosis, normal appearance ENT: hearing grossly normal, no tonsillar exudates, no tonsillar swelling - Neck Neck: no lymphadenopathy, no normal ROM, no rigidity Carotids: bilateral: upstroke normal Thyroid: negative: normal size - Respiratory Respiratory: bilateral: diminished, rales, rhonchi, negative: wheezing - Cardiovascular Rhythm: regular Heart sounds: normal: S1, S2 Abnormal Heart Sounds: no systolic murmur, no diastolic murmur - Gastrointestinal General gastrointestinal: normal bowel sounds, no organomegaly, soft, no tenderness - Musculoskeletal Musculoskeletal: gait normal, generalized weakness - Psychiatric Psychiatric: A&O x's 3, appropriate affect - Labs CBC & Chem 7: 08/10/17 08:49 08/11/17 10:03 Labs: Abnormal Lab Results - Last 24 Hours (Table) 08/10/17 08/10/17 08/10/17 Range/Units 08:49 08:49 08:49 WBC 15.2 H (3.8-10.6) k/uL Neutrophils # 14.0 H (1.3-7.7) k/uL Lymphocytes # 0.7 L (1.0-4.8) k/uL Potassium 2.8 L* (3.5-5.1) mmol/L Chloride 108 H (98-107) mmol/L BUN 22 H (9-20) mg/dL Glucose 207 H (74-99) mg/dL IgE 431.00 H (0.00-114.00) IU/mL Microbiology - Last 24 Hours (Table) 08/09/17 15:01 Blood Culture - Preliminary Blood No Growth after 24 hours Assessment and Plan Plan: 1 acute bronchitis - Continue on ceftriaxone and azithromycin - Respiratory cultures - Albuterol and Atrovent when necessary shortness of breath - Influenza testing negative. Tamiflu discontinued - Comprehensive viral panel positive for rhinovirus - Incentive spirometry - CBC next am 2. Hypertension- continue metoprolol, lisinopril and HCTZ 3. DVT prophylaxis- heparin every 8 subcu 4. Hypokalemia - continue to repletion per protocol, CMP next a.m. hydrochlorothiazide discontinued, scheduled potassium ordered. 5. Disposition- likely discharge in 24-48 hours 6. Possible obstructive sleep apnea. Patient will need outpatient sleep study done Full code Impression and plan of care have been directed as dictated by the signing physician. Selma Gilliam nurse practitioner acting as scribe for signing physician.
[2017-08-11] MEDS: FLUTICASONE 50MCG/SPRAY NASAL 16GM EA NOSTRIL SCH (13:31)
[2017-08-11] MEDS: methylPREDNISolone SOD SUCCI 125 MG/2 ML VIAL IV SCH ×3 (13:31→23:36)
--- NOTE | 2017-08-11 13:48 | PN ---
PROGRESS NOTE DATE OF SERVICE: 08/11/2017 Patient is a 56-year-old male who is seen sitting up in bed. He is currently receiving a respiratory treatment. The patient is awake, alert, hemodynamically stable. Afebrile. In no acute distress. Patient's is also present during the visit. The patient states that the wheezing comes and goes. He still has a nonproductive cough. No complaints of fever, chills, or pain. The patient states when he lays flat, the wheezing seems to get worse. He has more difficulty breathing. Further evaluation was done for possible untreated obstructive sleep apnea. The patient was asked if he snored and his stated that he snores terribly. The patient does not get a good night's sleep. Does travel flying to other countries 8-10 times a year and patient also states that when he does travel he does experience more problems with breathing. PHYSICAL EXAM: GENERAL: He is a 56-year-old male who is calm and cooperative. VITAL SIGNS: Temp is 96.8, heart rate is 76, respiratory rate is 19, blood pressure is 154/83, O2 sats 97% on room air. HEENT: Head is normocephalic, atraumatic. Mallampati is class 3-4 with a very small oropharynx and very low-lying soft palate. NECK: Short, thick, supple. Trachea is midline. LUNGS: With decreased breath sounds and scattered wheezes. HEART: S1, S2 are heard. Not tachycardic. ABDOMEN: Soft. Bowel sounds heard. EXTREMITIES: With no edema. NEUROLOGIC: Patient is awake, alert, oriented. LABS: Sodium is 146, potassium is 2.9, chloride 111, CO2 is 23, anion gap is 12, BUN is 29, creatinine is 1.04, glucose is 130, calcium is 8.5, total bilirubin 0.4, AST is 23, ALT is 42, alkaline phosphatase 65, total protein 6.4, albumin is 3.4. Influenza type A and B both negative. Viral test shows that rhino virus is detected. IMAGING: Chest x-ray done this a.m. with no acute pulmonary process. IMPRESSION: 1. Acute hypoxemia. 2. Acute bronchitis with bronchospasms. 3. Suspected obstructive sleep apnea. 4. Recent travel to [place]. 5. Seasonal allergies. 6. Hypertension. 7. Hypokalemia. 8. Obesity. PLAN: We will increase steroids to IV Solu-Medrol 60 mg q.6 hours to decrease airway inflammation. Continue bronchodilators and aerosolized steroids. Check a [place] RAST panel, hypersensitivity pneumonitis panel, alpha-1 antitrypsin level with phenotype. Replace potassium and peak flow monitor monitoring. The patient will benefit from a sleep study for evaluation of obstructive sleep apnea as an outpatient. Patient should also follow up in the Pulmonary office for further pulmonary evaluation with a PFT and possible test. Continue GI and DVT prophylaxis. Continue pulmonary hygiene with incentive spirometry and flutter therapy. Increase activity as tolerated and will follow patient closely with you making further changes as necessary. MMODL / IJN: [id number] /
[2017-08-11] MEDS: METOPROLOL TARTRATE 50 MG TAB PO SCH (20:54)
[2017-08-12 05:37] LABS: Mycoplasma IgG Antibody (EIA) 1.55 INDEX (<=0.90); Mycoplasma IgM Antibody 0.39 INDEX (<=0.90)
[2017-08-12] MEDS: methylPREDNISolone SOD SUCCI 125 MG/2 ML VIAL IV SCH ×2 (05:39→13:07)
[2017-08-12] MEDS: amLODIPine 10 MG TAB PO SCH (08:07)
[2017-08-12] MEDS: guaiFENesin 600 MG TABLET.ER PO SCH ×3 (08:07→21:50)
[2017-08-12] MEDS: LOSARTAN 50 MG TAB PO SCH (08:07)
[2017-08-12] MEDS: ASCORBIC ACID 500 MG TAB PO SCH (08:08)
[2017-08-12] MEDS: AZITHROMYCIN 500 MG TAB PO SCH (08:08)
[2017-08-12] MEDS: HEPARIN SODIUM,PORCINE 5,000 UNIT/ML 1 ML VIAL SQ SCH ×2 (08:09→16:30)
[2017-08-12] MEDS: FLUTICASONE 50MCG/SPRAY NASAL 16GM EA NOSTRIL SCH (08:10)
[2017-08-12] MEDS: BUDESONIDE 0.5 MG/2 ML NEBU INHALATION SCH ×2 (08:55→20:31)
[2017-08-12] MEDS: IPRATROPIUM-ALBUTEROL 3 ML NEB INHALATION SCH ×4 (08:55→20:31)
[2017-08-12 09:59] LABS: ALT 35 U/L (21-72); AST 20 U/L (17-59); Alkaline Phosphatase 63 U/L (38-126); Anion Gap 11 mmol/L; Blood Urea Nitrogen 27 mg/dL (9-20); Calcium 8.4 mg/dL (8.4-10.2); Carbon Dioxide 23 mmol/L (22-30); Chloride 111 mmol/L (98-107); Glucose 165 mg/dL (74-99); Non-African American GFR(MDRD) >60 (>60 ml/min/1.73 sqM); Potassium 3.9 mmol/L (3.5-5.1); Sodium 145 mmol/L (137-145); Total Bilirubin 0.4 mg/dL (0.2-1.3)
[2017-08-12] MEDS: POTASSIUM CHLORIDE ER 20 MEQ TAB.ER PO SCH ×2 (10:52→21:51)
[2017-08-12] MEDS: SODIUM CHLORIDE 0.9% 1,000 ML IV SCH (10:53)
[2017-08-12] MEDS: VITAMIN E (DL,TOCOPHERYL ACET) 400 UNIT CAP PO SCH (13:06)
[2017-08-12] MEDS: B COMPLEX-VIT C-VIT E-ZINC 1 EACH TAB PO SCH (13:06)
--- NOTE | 2017-08-12 14:09 | PN ---
PROGRESS NOTE DATE OF SERVICE: 08/12/2017 He continues to have shortness of breath, especially when he lays down flat. He seems to cough a lot more during that time as well. He is feeling somewhat better; however, overall. His peak flows are running 250 to 300. PHYSICAL EXAMINATION: His blood pressure is 125/71, respiratory rate of 17, pulse of 64, temperature 97.1 degrees Fahrenheit, O2 sats on room air is 95%. HEENT reveals no new changes. Chest with decreased breath sounds with prolonged expiration, bilateral expiratory wheeze. Cardiovascular system with an S1, S2. Abdomen is soft. There is no pedal edema. LABS: Reveal sodium 145, potassium 3.9, chloride 111, bicarb 23, BUN 27, creatinine 0.93. IgE level was 431. Influenza A and B are negative. Urine Legionella is negative. Mycoplasma IgG is positive but IgM is within normal limits and rhinovirus was found in the viral test. IMPRESSION: 1. Severe asthma with acute exacerbation. 2. Possible chronic obstructive pulmonary disease. 3. Obstructive sleep apnea, clinically is likely. 4. Electrolyte abnormalities. At this point in time, keep him on IV steroids, bronchodilators, aerosolized steroids. Check a CT of the neck and the chest to make sure we are not dealing with an upper airway obstruction, as his most symptomatic mainly is down flat from a cough and shortness of breath perspective. Depending on how he does, we shall make further changes to his care. He was counseled regarding the need for close outpatient follow up and sleep study as an outpatient. MMMARIANOL / ABADN: [id number] /
[2017-08-12 14:23] LABS: Alternaria alternata IgE <0.35 kU/L (<0.35); Asperg. fumagatus IgE <0.35 kU/L (<0.35); Asperg. fumagatus IgE Class CLASS 0; Birch(Com.Silvr) IgE Class CLASS III; Cat Epith & Dander IgE <0.35 kU/L (<0.35); Cat Epith & Dander IgE Class CLASS 0; Clad herbarum IgE <0.35 kU/L (<0.35); Clad herbarum IgE Class CLASS 0; Common Ragweed IgE Class CLASS III; Dermato. Pteronyssinus Class CLASS II; Dermato. Pteronyssinus IgE 1.59 kU/L (<0.35); Dermato. farinae IgE 1.09 kU/L (<0.35); Dermato. farinae IgE Class CLASS II; Maple (Box Elder) IgE 1.04 kU/L (<0.35); Maple (Box Elder) IgE Class CLASS II; Mountain Cedar IgE 0.36 kU/L (<0.35); Mountain Cedar IgE Class CLASS I; Mouse Urine IgE Class CLASS 0; Mouse Urine Proteins,IgE <0.35 kU/L (<0.35); Mulberry IgE Class CLASS 0; Nettle IgE <0.35 kU/L (<0.35); Nettle IgE Class CLASS 0; Oak IgE 3.36 kU/L (<0.35); Penicillium notatum IgE Class CLASS 0; Rough Marshelder IgE 3.02 kU/L (<0.35); Rough Marshelder IgE Class CLASS II; Timothy Grass IgE 0.41 kU/L (<0.35); Timothy Grass IgE Class CLASS I; White Ash IgE Class CLASS II
--- NOTE | 2017-08-12 14:57 | CT ---
EXAMINATION TYPE: CT chest wo con DATE OF EXAM: 08/12/2017 COMPARISON: NONE HISTORY: inflammation/cough/sob CT DLP: 593.[address] of the chest was performed with lung and mediastinal window settings submitted. The la ck of contrast limits evaluation of the vascular, mediastinal and parenchymal structures including th e upper abdomen. LUNGS: The lungs are clear and free of infiltrate. No atelectasis. No pulmonary nodule or mass is de tected. No pleural effusion. Left lower lobe pleural thickening. No CT evidence of interstitial lung disease. MEDIASTINUM/JANIA: Thoracic aorta is of normal caliber with limited evaluation given lack of contrast . The heart is not enlarged. No evidence for mediastinal mass. No lymph nodes greater than 1cm. UPPER ABDOMEN: Nonspecific left renal lesions. Probable hepatic cyst near the dome of the liver. Sple gayle cystic lesion measuring 2.4 cm. OTHER: No significant other abnormality. IMPRESSION: 1. Mild left lower lobe posterior pleural thickening. No evidence for a focal consolidation, mass or pleural effusion at this time.
--- NOTE | 2017-08-12 15:06 | CT ---
EXAMINATION TYPE: CT soft tissue neck wo con DATE OF EXAM: 08/12/2017 COMPARISON: NONE HISTORY: inflammation/cough/sob CT DLP: 865.9 mGycm CONTRAST: None Unenhanced CT of the neck was performed. The lack of contrast does limit evaluation. AIRWAY: The supraglottic, glottic, and subglottic portions of the airway appear patent and free of mass. SALIVARY GLANDS: The submandibular and parotid glands are free of mass or inflammatory process. THYROID GLAND: Small subcentimeter nodule left thyroid lobe lower pole. LYMPH NODES: No adenopathy seen greater than 1cm. LUNG APICES: No nodule or mass is seen. OTHER: Vascular structures are patent. No significant degenerative change of the cervical spine. N o abscess seen. Chronic sinusitis maxillary sinuses and sphenoid sinus. IMPRESSION: 1. No significant abnormality of the neck. 2. Chronic sinusitis.
[2017-08-12 15:14] VITALS: RESP 16
--- NOTE | 2017-08-12 16:50 | P.PN ---
Subjective 54-year-old gentleman patient of Dr. Spivey. He has underlying history of controlled hypertension and obesity, who was last admitted for shortness of breath, fever and dry cough in 2014 presents with similar symptoms of nonproductive cough associated with shortness of breath, chills and generalized weakness following his trip to [place]. 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 Patient denies any sick contact. He does endorse sinus pressure, increased coryza with generalized weakness before having symptoms of cough. Patient is a non smoker and denies any h/o COPD/ asthma. Patient doesnot have a documented fever. 08/11: Patient is having shortness of breath when he lays down. He denies cough. Pulmonary medicine has placed him back on Solu-Medrol 60 mg IV every 6 hours. Flu testing came back negative and he was positive for rhinovirus. Tamiflu was discontinued. Patient's potassium remains low at 2.9 which will be replaced and hydrochlorothiazide discontinued. Patient will be placed on scheduled potassium as well. 08/12: The following lab tests are pending: Alpha-1 antitrypsin, hypersensitivity pneumonitis panel, [facility] IgE panel. Legionella and mycoplasma testing is negative. Potassium is in normal range today after discontinuing Hydrea chlorothiazide yesterday. IV Solu-Medrol will be switched to prednisone and anticipate discharge home tomorrow. Objective - Vital Signs Vital signs: Vital Signs Temp 97.1 F L 08/12/17 07:00 Pulse 84 08/12/17 09:11 Resp 17 08/12/17 07:00 BP 125/71 08/12/17 07:00 Pulse Ox 95 08/12/17 07:00 Intake & Output 08/11/17 08/12/17 08/12/17 18:59 06:59 18:59 Intake Total 50 Balance 50 Intake: Intake, IV Titration 50 Amount cefTRIAXone 1,000 mg In 50 Sodium Chloride 0.9% 50 ml @ 100 mls/hr IVPB Q24HR@1200 ANGEL Rx#: [id number] Other: # Voids 2 2 - Exam General appearance: average body habitus, cooperative, mild distress - EENT Eyes: EOMI, PERRLA, no photophobia, no ptosis, normal appearance ENT: hearing grossly normal, no tonsillar exudates, no tonsillar swelling - Neck Neck: no lymphadenopathy, no normal ROM, no rigidity Carotids: bilateral: upstroke normal Thyroid: negative: normal size - Respiratory Respiratory: bilateral: diminished, rales, rhonchi, negative: wheezing - Cardiovascular Rhythm: regular Heart sounds: normal: S1, S2 Abnormal Heart Sounds: no systolic murmur, no diastolic murmur - Gastrointestinal General gastrointestinal: normal bowel sounds, no organomegaly, soft, no tenderness - Musculoskeletal Musculoskeletal: gait normal, generalized weakness - Psychiatric Psychiatric: A&O x's 3, appropriate affect - Labs CBC & Chem 7: 08/10/17 08:49 08/12/17 08:47 Labs: Abnormal Lab Results - Last 24 Hours (Table) 08/10/17 08/11/17 08/11/17 Range/Units 15:35 10:03 14:20 Sodium 146 H (137-145) mmol/L Potassium 2.9 L* (3.5-5.1) mmol/L Chloride 111 H (98-107) mmol/L BUN 29 H (9-20) mg/dL Glucose 130 H (74-99) mg/dL Albumin 3.4 L (3.5-5.0) g/dL Mycoplasma pneumon IgG 1.55 H (<=0.90) INDEX Viral Test See Below H Microbiology - Last 24 Hours (Table) 08/11/17 16:27 Gram Stain - Preliminary Sputum Sputum Culture - Preliminary 08/09/17 15:01 Blood Culture - Preliminary Blood No Growth after 48 hours Assessment and Plan Plan: 1 acute bronchitis - Continue on ceftriaxone and azithromycin - Respiratory cultures - Albuterol and Atrovent when necessary shortness of breath - Influenza testing negative. Tamiflu discontinued - Comprehensive viral panel positive for rhinovirus - Incentive spirometry - CBC next am 2. Hypertension- continue metoprolol, lisinopril and HCTZ 3. DVT prophylaxis- heparin every 8 subcu 4. Hypokalemia - continue to repletion per protocol, CMP next a.m. hydrochlorothiazide discontinued, scheduled potassium ordered. 5. Disposition- likely discharge in 24-48 hours 6. Possible obstructive sleep apnea. Patient will need outpatient sleep study done Full code Discharge plan: Home tomorrow Impression and plan of care have been directed as dictated by the signing physician. Selma Gilliam nurse practitioner acting as scribe for signing physician.
[2017-08-12] MEDS: METOPROLOL TARTRATE 50 MG TAB PO SCH (21:51)
[2017-08-13] MEDS: HEPARIN SODIUM,PORCINE 5,000 UNIT/ML 1 ML VIAL SQ SCH ×4 (00:15→15:17)
[2017-08-13] MEDS: amLODIPine 10 MG TAB PO SCH (08:09)
[2017-08-13] MEDS: ASCORBIC ACID 500 MG TAB PO SCH (08:09)
[2017-08-13] MEDS: guaiFENesin 600 MG TABLET.ER PO SCH ×3 (08:10→20:36)
[2017-08-13] MEDS: POTASSIUM CHLORIDE ER 20 MEQ TAB.ER PO SCH ×2 (08:10→20:36)
[2017-08-13] MEDS: LOSARTAN 50 MG TAB PO SCH (08:10)
[2017-08-13] MEDS: AZITHROMYCIN 500 MG TAB PO SCH (08:10)
[2017-08-13] MEDS: FLUTICASONE 50MCG/SPRAY NASAL 16GM EA NOSTRIL SCH (08:14)
[2017-08-13] MEDS: IPRATROPIUM-ALBUTEROL 3 ML NEB INHALATION SCH ×5 (08:40→20:25)
[2017-08-13] MEDS: BUDESONIDE 0.5 MG/2 ML NEBU INHALATION SCH ×3 (08:40→20:25)
[2017-08-13] MEDS ORDERED: predniSONE 20 MG TAB PO SCH (09:00)
[2017-08-13 09:09] LABS: Anion Gap 14 mmol/L; Blood Urea Nitrogen 34 mg/dL (9-20); Calcium 8.6 mg/dL (8.4-10.2); Carbon Dioxide 21 mmol/L (22-30); Chloride 111 mmol/L (98-107); Glucose 167 mg/dL (74-99); Non-African American GFR(MDRD) >60 (>60 ml/min/1.73 sqM); Potassium 3.7 mmol/L (3.5-5.1); Sodium 146 mmol/L (137-145)
[2017-08-13] MEDS ORDERED: predniSONE 20 MG TAB PO STA (10:49)
[2017-08-13] MEDS: B COMPLEX-VIT C-VIT E-ZINC 1 EACH TAB PO SCH (11:24)
[2017-08-13] MEDS: VITAMIN E (DL,TOCOPHERYL ACET) 400 UNIT CAP PO SCH (11:24)
--- NOTE | 2017-08-13 11:25 | PN ---
PROGRESS NOTE He was seen again on 08/13/2017. He has been hemodynamically stable. His peak flows are up to 400 post bronchodilator. He had a CT scan of the chest done as well which showed changes consistent with inflammation in the trachea and the bronchi with the mucosa being somewhat irregular. There was some pleural thickening in the left lower zone more than the right, but the patient gives no history of asbestos exposure. There were no lung masses. The neck CT scan did not show any masses, either. PHYSICAL EXAMINATION: Vitals are stable. He is afebrile. His chest reveals wheeze on forced expiration. CARDIOVASCULAR SYSTEM: S1, S2. ABDOMEN: Soft. There is no edema. LABS: Reviewed. IgE level is extremely high, over 400, along with several aero allergens that the patient is positive for. IMPRESSION: 1. Severe asthma with acute exacerbation. 2. Obstructive sleep apnea clinically is likely. 3. Acute respiratory failure which may in part be due to asthma exacerbation and obstructive sleep apnea. 4. Doubt primary pneumonia, but there could be a secondary bacterial infection as well. From a pulmonary standpoint, would recommend increasing his prednisone to 60 mg. Consider discharge planning tomorrow. Tapering steroids slowly over 12 days with inhaled steroids, bronchodilators and leukotriene receptor antagonist in his discharge regimen. Would have him see us within the within the next 7 days in the office while he is still on steroids. Consider outpatient sleep study which can be arranged once he is seen in the office setting. He was counseled regarding his condition and this approach. The pleural thickening may need to be followed clinically and radiographically in the future. MMODL / IJN: [id number] /
--- NOTE | 2017-08-13 16:09 | P.PN ---
Subjective 54-year-old gentleman patient of Dr. Spivey. He has underlying history of controlled hypertension and obesity, who was last admitted for shortness of breath, fever and dry cough in 2014 presents with similar symptoms of nonproductive cough associated with shortness of breath, chills and generalized weakness following his trip to [place]. 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 Patient denies any sick contact. He does endorse sinus pressure, increased coryza with generalized weakness before having symptoms of cough. Patient is a non smoker and denies any h/o COPD/ asthma. Patient doesnot have a documented fever. 08/11: Patient is having shortness of breath when he lays down. He denies cough. Pulmonary medicine has placed him back on Solu-Medrol 60 mg IV every 6 hours. Flu testing came back negative and he was positive for rhinovirus. Tamiflu was discontinued. Patient's potassium remains low at 2.9 which will be replaced and hydrochlorothiazide discontinued. Patient will be placed on scheduled potassium as well. 08/12: The following lab tests are pending: Alpha-1 antitrypsin, hypersensitivity pneumonitis panel, [facility] IgE panel. Legionella and mycoplasma testing is negative. Potassium is in normal range today after discontinuing Hydrea chlorothiazide yesterday. IV Solu-Medrol will be switched to prednisone and anticipate discharge home tomorrow. 08/13: Alpha-1 antitrypsin came back within normal limits. Multiple positive results on his ALLERGY testing. IgE came back at 370. Dr. FUNMI Dahl would like to keep the patient 1 more day. He would like prednisone increased to 60 mg daily. Review discharge medications with him for tomorrow. He is gradually improving. Objective - Vital Signs Vital signs: Vital Signs Temp 96.7 F L 08/13/17 07:00 Pulse 72 08/13/17 09:34 Resp 16 08/13/17 07:00 BP 138/81 08/13/17 07:00 Pulse Ox 97 08/13/17 07:00 Intake & Output 08/12/17 08/13/17 08/13/17 18:59 06:59 18:59 Intake Total 440 Balance 440 Intake: Oral 440 Other: # Voids 2 2 # Bowel Movements 0 - Exam General appearance: average body habitus, cooperative, mild distress - EENT Eyes: EOMI, PERRLA, no photophobia, no ptosis, normal appearance ENT: hearing grossly normal, no tonsillar exudates, no tonsillar swelling - Neck Neck: no lymphadenopathy, no normal ROM, no rigidity Carotids: bilateral: upstroke normal Thyroid: negative: normal size - Respiratory Respiratory: bilateral: diminished, rales, rhonchi, negative: wheezing - Cardiovascular Rhythm: regular Heart sounds: normal: S1, S2 Abnormal Heart Sounds: no systolic murmur, no diastolic murmur - Gastrointestinal General gastrointestinal: normal bowel sounds, no organomegaly, soft, no tenderness - Musculoskeletal Musculoskeletal: gait normal, generalized weakness - Psychiatric Psychiatric: A&O x's 3, appropriate affect - Labs CBC & Chem 7: 08/10/17 08:49 08/13/17 08:29 Labs: Abnormal Lab Results - Last 24 Hours (Table) 08/11/17 08/13/17 Range/Units 14:20 08:29 Sodium 146 H (137-145) mmol/L Chloride 111 H (98-107) mmol/L Carbon Dioxide 21 L (22-30) mmol/L BUN 34 H (9-20) mg/dL Glucose 167 H (74-99) mg/dL D. farinae Allrgen IgE 1.09 H (<0.35) kU/L D. pteronyssinus IgE 1.59 H (<0.35) kU/L [place] IgE Ab 12.30 H (<0.35) kU/L [place] IgE Ab 0.79 H (<0.35) kU/L [place] Tree Allergen IgE 1.16 H (<0.35) kU/L [place] ([place]) IgE 1.04 H (<0.35) kU/L [place] Tree IgE Ab 0.36 H (<0.35) kU/L [place] Tree Allerg IgE Ab 3.36 H (<0.35) kU/L [place] Tree IgE Ab 2.28 H (<0.35) kU/L [place] Grass IgE Ab 1.46 H (<0.35) kU/L [place] Grass IgE Ab 0.41 H (<0.35) kU/L Common Ragweed IgE Ab 12.60 H (<0.35) kU/L [place] Elder ([place]) 3.02 H (<0.35) kU/L [place] Thistle IgE Ab 1.11 H (<0.35) kU/L Cockroach Allergen IgE 2.08 H (<0.35) kU/L IgE 370.0 H (<114.0) IU/mL Microbiology - Last 24 Hours (Table) 08/09/17 15:01 Blood Culture - Preliminary Blood No Growth after 72 hours 08/11/17 16:27 Gram Stain - Preliminary Sputum Sputum Culture - Preliminary Assessment and Plan Plan: 1 severe asthma with acute exacerbation and acute bronchitis - Continue on ceftriaxone and azithromycin - Respiratory cultures - Albuterol and Atrovent when necessary shortness of breath - Influenza testing negative. Tamiflu discontinued - Comprehensive viral panel positive for rhinovirus - Incentive spirometry - CBC next am -Oral prednisone -Singulair 2. Hypertension- continue metoprolol, lisinopril and HCTZ 3. DVT prophylaxis- heparin every 8 subcu 4. Hypokalemia - continue to repletion per protocol, CMP next a.m. hydrochlorothiazide discontinued, scheduled potassium ordered. 5. Disposition- likely discharge in 24-48 hours 6. Possible obstructive sleep apnea. Patient will need outpatient sleep study done Full code Discharge plan: Home tomorrow Impression and plan of care have been directed as dictated by the signing physician. Selma Gilliam nurse practitioner acting as scribe for signing physician.
[2017-08-13] MEDS: METOPROLOL TARTRATE 50 MG TAB PO SCH (20:36)
[2017-08-13] MEDS ORDERED: MONTELUKAST 10 MG TAB PO SCH (21:00)
[2017-08-14] MEDS: HEPARIN SODIUM,PORCINE 5,000 UNIT/ML 1 ML VIAL SQ SCH ×2 (00:02→08:23)
[2017-08-14 06:21] VITALS: TEMP 97.2
[2017-08-14 06:45] VITALS: BP 155/73
[2017-08-14] MEDS: LOSARTAN 50 MG TAB PO SCH (08:22)
[2017-08-14] MEDS: AZITHROMYCIN 500 MG TAB PO SCH (08:23)
[2017-08-14] MEDS: guaiFENesin 600 MG TABLET.ER PO SCH (08:23)
[2017-08-14] MEDS: ASCORBIC ACID 500 MG TAB PO SCH (08:23)
[2017-08-14] MEDS: POTASSIUM CHLORIDE ER 20 MEQ TAB.ER PO SCH (08:23)
[2017-08-14] MEDS: amLODIPine 10 MG TAB PO SCH (08:23)
[2017-08-14] MEDS ORDERED: predniSONE 20 MG TAB PO SCH (09:00)
[2017-08-14] MEDS: IPRATROPIUM-ALBUTEROL 3 ML NEB INHALATION SCH (09:13)
[2017-08-14] MEDS: BUDESONIDE 0.5 MG/2 ML NEBU INHALATION SCH (09:13)
[2017-08-14 09:17] VITALS: PULSE 68
[2017-08-14] MEDS: FLUTICASONE 50MCG/SPRAY NASAL 16GM EA NOSTRIL SCH (10:36)
--- NOTE | 2017-08-17 15:14 | P.DS ---
Providers Date of admission: 08/10/17 14:47 Expected date of discharge: 08/14/17 Attending physician: Selena Bolivar Consults: 08/09/17 19:22 Consult Physician Routine Consulting Provider: Mary Pathak Consult Reason/Comments: shortness of breath Do you want consulting provider notified?: Yes [facility]: 54-year-old gentleman patient of Dr. Spivey. He has underlying history of controlled hypertension and obesity, who was last admitted for shortness of breath, fever and dry cough in 2014 presents with similar symptoms of nonproductive cough associated with shortness of breath, chills and generalized weakness following his trip to [place]. 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 Patient denies any sick contact. He does endorse sinus pressure, increased coryza with generalized weakness before having symptoms of cough. Patient is a non smoker and denies any h/o COPD/ asthma. Patient doesnot have a documented fever. 08/11: Patient is having shortness of breath when he lays down. He denies cough. Pulmonary medicine has placed him back on Solu-Medrol 60 mg IV every 6 hours. Flu testing came back negative and he was positive for rhinovirus. Tamiflu was discontinued. Patient's potassium remains low at 2.9 which will be replaced and hydrochlorothiazide discontinued. Patient will be placed on scheduled potassium as well. 08/12: The following lab tests are pending: Alpha-1 antitrypsin, hypersensitivity pneumonitis panel, [facility] IgE panel. Legionella and mycoplasma testing is negative. Potassium is in normal range today after discontinuing Hydrochlorothiazide yesterday and providing replacement potassium. IV Solu-Medrol will be switched to prednisone and anticipate discharge home tomorrow. 08/13: Patient states he still has a cough when he lays down which is nonproductive. He states he can walk without shortness of breath. Patient will be discharged home today in stable condition. Discharge diagnoses: 1 acute bronchitis 2. Hypertension 3. DVT prophylaxis 4. Hypokalemia 5. Possible obstructive sleep apnea. Patient will need outpatient sleep study done Discharge plan: Home Impression and plan of care have been directed as dictated by the signing physician. Selma Gilliam nurse practitioner acting as scribe for signing physician. Patient Condition at Discharge: Good Plan - Discharge Summary New Discharge Prescriptions: New Albuterol Inhaler [Ventolin Hfa Inhaler] 2 puff INHALATION Q6HR PRN #1 inhaler PRN Reason: Wheezing Beclomethasone Dipropionate [Qvar] 1 puff IH BID #1 inh Montelukast Sodium [Singulair] 10 mg PO HS #30 tab predniSONE 0 mg PO DIRECTED #21 tab Azithromycin [Zithromax] 500 mg PO DAILY #2 tab Fluticasone Nasal [place] [Flonase Nasal [place]] 2 spray EA NOSTRIL DAILY #1 spr Losartan [Cozaar] 100 mg PO DAILY #60 tab Metoprolol Tartrate [Lopressor] 100 mg PO HS #30 tab Continue Vitamin E (Dl,Tocopheryl Acet) [Vitamin E] 400 unit PO DAILY Vitamin B Complex 1 cap PO DAILY amLODIPine [Norvasc] 10 mg PO DAILY Ascorbic Acid [Vitamin C] 500 mg PO DAILY [place]-3 Fatty Acids/Fish Oil [Fish Oil 1,000 mg Softgel] 1 cap PO DAILY Discontinued Metoprolol Tartrate [Lopressor] 50 mg PO HS Losartan/Hydrochlorothiazide [Losartan-Hctz 100-25 mg Tab] 1 tab PO DAILY Discharge Medication List Ascorbic Acid [Vitamin C] 500 mg PO DAILY 08/09/17 [History] [place]-3 Fatty Acids/Fish Oil [Fish Oil 1,000 mg Softgel] 1 cap PO DAILY [History] Vitamin B Complex 1 cap PO DAILY 08/09/17 [History] Vitamin E (Dl,Tocopheryl Acet) [Vitamin E] 400 unit PO DAILY 08/09/17 [History] amLODIPine [Norvasc] 10 mg PO DAILY 08/09/17 [History] Albuterol Inhaler [Ventolin Hfa Inhaler] 2 puff INHALATION Q6HR PRN #1 inhaler 08/13/17 [Rx] Beclomethasone Dipropionate [Qvar] 1 puff IH BID #1 inh 08/13/17 [Rx] Montelukast Sodium [Singulair] 10 mg PO HS #30 tab 08/13/17 [Rx] predniSONE 0 mg PO DIRECTED #21 tab 08/13/17 [Rx] Azithromycin [Zithromax] 500 mg PO DAILY #2 tab 08/14/17 [Rx] Fluticasone Nasal [place] [Flonase Nasal [place]] 2 spray EA NOSTRIL DAILY #1 spr [Rx] Losartan [Cozaar] 100 mg PO DAILY #60 tab 08/14/17 [Rx] Metoprolol Tartrate [Lopressor] 100 mg PO HS #30 tab 08/14/17 [Rx] Follow up Appointment(s)/Referral(s): Sanjeev Spivey DO [Primary Care Provider] - 08/21/17 (Office will call you with appointment time. ) Clinton Dahl MD [STAFF PHYSICIAN] - 08/20/17 4:00 pm (Outpatient sleep study will be set up at your follow up visit. ) Patient Instructions/Handouts: Acute Bronchitis (GEN) Activity/Diet/Wound Care/Special Instructions: Cardiac diet. Discharge Disposition: HOME SELF-CARE
[2017-08-17 17:41] LABS: Alternaria Alternata IgG 6.9 mcg/mL (< 13.6); Cladosporium herbarium IgG 38.6 mcg/mL (< 14.7); Phoma ssp. IgG 9.3 mcg/mL (< 6.6); Saccaharomospora viridis Not detected (Not detected); Saccaharopoly. rectivirgula Not detected (Not detected)
== END 2017-08-14 10:25 | disposition home or self-care (01) | DRG 202 ==
LOC: EC 14:42 → 3OBS 16:48 → OBSVTOIN 08-10 14:47 → 4MS4W 08-10 18:00
PROVIDERS: ADMIT Family Medicine; ATTEND Family Medicine
DX: J20.9 Acute bronchitis, unspecified (principal); J96.01 Acute respiratory failure with hypoxia; J45.51 Severe persistent asthma with (acute) exacerbation; I10 Essential (primary) hypertension; B34.8 Other viral infections of unspecified site; E66.9 Obesity, unspecified; E87.6 Hypokalemia; G47.33 Obstructive sleep apnea (adult) (pediatric); Z79.899 Other long term (current) drug therapy; Z82.49 Family history of ischemic heart disease and other diseases of the circulatory system
CPT/HCPCS: 36415; 70490; 71020; 71250; 80048; 80053; 82103; 82104; 82550; 82553; 82785; 83735; 83880; 84484; 85025; 85379; 85610; 85730; 86001; 86003; 86606; 86609; 86738; 87040; 87070; 87205; 87252; 87449; 87498; 87502; 87529; 87798; 93005; 93306; 94640; 94667; 96361; 96365; 96375; 99285

== ENCOUNTER → 2018-11-22 | Outpatient (CLI) | payer BC ==
[2018-11-22 19:03] LABS: Albumin 4.5 g/dL (3.80-4.90); Albumin/Globulin Ratio 2.37 (1.20-2.10); Anion Gap 8.9 mmol/L (4.00-12.00); Calcium 9.3 mg/dL (8.7-10.3); Carbon Dioxide 31.1 mmol/L (21.6-31.8); Globulin 1.9 g/dL (1.6-3.3); Magnesium 2.2 mg/dL (1.5-2.4); Phosphorus 4.9 mg/dL (2.4-5.1); Potassium 3.4 mmol/L (3.5-5.5); Total Bilirubin 0.6 mg/dL (0.3-1.2); Total Protein 6.4 g/dL (6.2-8.2)
== END ==
LOC: LABWHC1 14:55
PROVIDERS: ATTEND Internal Medicine Endocrinology, Diabetes & Metabolism
DX: E87.6 Hypokalemia (principal)
CPT/HCPCS: 36415; 80053; 82088; 83735; 84100; 84244

== ENCOUNTER → 2018-12-22 | Outpatient (CLI) | payer BC ==
--- NOTE | 2018-12-23 15:17 | CT ---
EXAMINATION TYPE: CT abdomen wo/w con DATE OF EXAM: 12/22/2018 COMPARISON: CT chest 08/12/2017 HISTORY: abnormal labs, hypokalemia CT DLP: 2136 mGycm Automated exposure control for dose reduction was used. TECHNIQUE: Helical acquisition of images was performed from the lung bases through the top of iliac crest to include entire abdomen. CONTRAST: Performed with Oral Contrast and with IV Contrast, patient injected with 100 mL of Isovue 300. FINDINGS: Heart is borderline enlarged. Small hiatal hernia noted. LUNG BASES: No significant abnormality is appreciated. LIVER/GB: Multiple cystic foci again noted within the liver. Gallbladder is normal. PANCREAS: No significant abnormality is seen. SPLEEN: No significant abnormality is seen. ADRENALS: Right adrenal gland shows a fat containing lesion and is stable measuring KIDNEYS: No significant interval change is seen. Exophytic cystic focus laterally at the left kidney shows a mural calcification as on prior. Cystic focus present at the lower pole the left kidney. BOWEL: No significant abnormality is seen. 11 mm. LYMPH NODES: No significant abnormality is appreciated. OSSEOUS STRUCTURES: No significant interval change is seen. There is multilevel spondylosis, degener ative disc change and facet arthropathy especially in the lower lumbar spine FREE AIR: No Free Air visible ASCITES: None visible. RETROPERITONEAL ADENOPATHY: No Retroperitoneal Adenopathy visible. IMPRESSION: NO ABNORMALITY EVIDENT TO ACCOUNT FOR PATIENT'S SYMPTOMS. PROBABLE MYELOLIPOMA ASSOCIATED WITH THE RI GHT ADRENAL GLAND. BORDERLINE ENLARGED HEART.
== END | disposition home or self-care (01) ==
LOC: RADCTMAIN 16:25
PROVIDERS: ATTEND Internal Medicine Endocrinology, Diabetes & Metabolism
DX: E87.6 Hypokalemia (principal)
CPT/HCPCS: 74170; Q9967

== ENCOUNTER → 2019-01-19 | Outpatient (CLI) | payer BC ==
[2019-01-20 01:18] LABS: Albumin 4.3 g/dL (3.80-4.90); Albumin/Globulin Ratio 2.05 (1.60-3.17); Anion Gap 10.6 mmol/L (4.00-12.00); Calcium 9.3 mg/dL (8.7-10.3); Carbon Dioxide 24.4 mmol/L (21.6-31.8); Globulin 2.1 g/dL (1.6-3.3); Potassium 4.3 mmol/L (3.5-5.5); Total Bilirubin 0.7 mg/dL (0.2-1.2); Total Protein 6.4 g/dL (6.2-8.2)
== END | disposition home or self-care (01) ==
LOC: LABWHC1 15:39
PROVIDERS: ATTEND Internal Medicine Endocrinology, Diabetes & Metabolism
DX: E87.6 Hypokalemia (principal)
CPT/HCPCS: 36415; 80053

== ENCOUNTER 2022-04-15 12:22 | Emergency (ER) | payer BC, OTHER ==
[2022-04-15 12:37] VITALS: BP 216/89; PULSE 54; RESP 20; TEMP 98.2
--- NOTE | 2022-04-15 13:58 | ED ---
Wound/Laceration HPI - General Chief Complaint: Wound/Laceration Stated Complaint: IHS Head injuyr/lac Time Seen by Provider: 04/15/22 13:42 Source: patient, RN notes reviewed, old records reviewed Mode of arrival: ambulatory Limitations: no limitations - History of Present Illness Initial Comments: Patient is a 61-year-old male presenting to the emergency department with a laceration to his scalp. Patient states he was at work today, bent over to pick something up from the floor when he stood up he hit the left side of his head on the corner of a metal machine. He has a small laceration there. This happened around 11:30 this morning. Patient states he had a hard time getting the bleeding stopped so came in for evaluation. He is not on blood thinners. There was no loss of consciousness. He denies having a headache, no blurry vision, no dizziness. Denies any nausea or vomiting. He states he feels absolutely fine and just needed the laceration looked at. Patient has no further complaints today. - Related Data Home Medications Medication Instructions Recorded Confirmed Ascorbic Acid [Vitamin C] 500 mg PO DAILY 08/09/17 08/09/17 [place]-3 Fatty Acids/Fish Oil [Fish 1 cap PO DAILY 08/09/17 08/09/17 Oil 1,000 mg Softgel] Vitamin B Complex 1 cap PO DAILY 08/09/17 08/09/17 Vitamin E (Dl,Tocopheryl Acet) 400 unit PO DAILY 08/09/17 08/09/17 [Vitamin E (400 Iu = 180 mg)] amLODIPine [Norvasc] 10 mg PO DAILY 08/09/17 08/09/17 Previous Rx's Medication Instructions Recorded Albuterol Inhaler (Mhu) [Ventolin 2 puff INHALATION Q6HR PRN #1 08/13/17 Hfa Inhaler (Mhu)] inhaler Beclomethasone Dipropionate [Qvar] 1 puff IH BID #1 inh 08/13/17 Montelukast Sodium [Singulair] 10 mg PO HS #30 tab 08/13/17 predniSONE [Deltasone] 0 mg PO DIRECTED #21 tab 08/13/17 Azithromycin [Zithromax] 500 mg PO DAILY #2 tab 08/14/17 Fluticasone Nasal [place] [Flonase 2 spray EA NOSTRIL DAILY #1 spr 08/14/17 Nasal [place]] Losartan [Cozaar] 100 mg PO DAILY #60 tab 08/14/17 Metoprolol Tartrate [Lopressor] 100 mg PO HS #30 tab 08/14/17 Allergies Allergy/AdvReac Type Severity Reaction Status Date / Time No Known Allergies Allergy Verified 04/15/22 12:37 Review of Systems ROS Statement: Those systems with pertinent positive or pertinent negative responses have been documented in the HPI. ROS Other: All systems not noted in ROS Statement are negative. Past Medical History Past Medical History: Hypertension History of Any Multi-Drug Resistant Organisms: None Reported Past Surgical History: No Surgical Hx Reported Past Anesthesia/Blood Transfusion Reactions: No Reported Reaction Past Psychological History: No Psychological Hx Reported Smoking Status: Never smoker Past Alcohol Use History: None Reported Past Drug Use History: None Reported - Past Family History Father Family Medical History: Myocardial Infarction (RI) (at age 50 ) Additional Family Medical History / Comment(s): RI at age 50 Mother Family Medical History: Diabetes Mellitus General Exam - General Exam Comments Initial Comments: GENERAL: Patient is well-developed and well-nourished. Patient is nontoxic and in no acute distress. HEAD: Atraumatic, normocephalic. No hematoma, small abrasion to the left frontal scalp, no pain around the area. EYES: Pupils equal round and reactive to light, extraocular movements intact, sclera anicteric, conjunctiva are normal. Eyelids were unremarkable. ENT: TMs normal, nares patent, oropharynx clear without exudates. Moist mucous m embranes. NECK: Normal range of motion, supple without lymphadenopathy or JVD. No midline tenderness. LUNGS: Unlabored respirations. Breath sounds clear to auscultation bilaterally and equal. No wheezes rales or rhonchi. HEART: Regular rate and rhythm without murmurs, rubs or gallops. MUSCULOSKELETAL: Normal extremities with adequate strength and normal range of motion, no pitting or edema. No clubbing or cyanosis. NEUROLOGICAL: Patient is alert and oriented x 3. Normal speech, normal gait. PSYCH: Normal mood, normal affect. SKIN: Warm, Dry, normal turgor, no rashes. Small superficial 1 cm abrasion noted to the left frontal scalp. No active bleeding. Limitations: no limitations Course Vital Signs 04/15/22 12:35 Temperature 98.2 F Pulse Rate 54 L Respiratory 20 Rate Blood Pressure 216/89 O2 Sat by Pulse 99 Oximetry Medical Decision Making - Medical Decision Making Patient is a 61-year-old male here with a small abrasion noted to the left frontal scalp from hitting it at work today. He is on blood thinners. There is no active bleeding. Patient's exam is unremarkable, he has no other complaints. Patient's wound was cleaned. We discussed wound care. Patient stable for discharge. Disposition Clinical Impression: Abrasion of scalp Disposition: HOME SELF-CARE Condition: Stable Instructions (If sedation given, give patient instructions): Abrasion (ED) Additional Instructions: Please return to the Emergency Department if symptoms worsen or any other concerns. Keep area clean and dry. Is patient prescribed a controlled substance at d/c from ED?: No Referrals: Sanjeev Spivey DO [Primary Care Provider] - 1-2 days Time of Disposition: 13:57
== END 2022-04-15 14:03 | disposition home or self-care (01) ==
LOC: EC 12:22
DX: S00.01XA Abrasion of scalp, initial encounter (principal); I10 Essential (primary) hypertension; Z79.899 Other long term (current) drug therapy; W22.09XA Striking against other stationary object, initial encounter; Y99.0 Civilian activity done for income or pay; Y92.89 Other specified places as the place of occurrence of the external cause
CPT/HCPCS: 99282

== ENCOUNTER → 2022-05-23 | Outpatient (CLI) | payer BC ==
--- NOTE | 2022-05-23 11:23 | CA ---
Transthoracic Echo Report Name: John Baugh Age: 61 Gender: M : 1960 Exam Date: 05/23/2022 08:35 Exam Location: [facility] Ht (in): 68 Wt (lb): 230 Ordering Physician: Snajeev Spivey DO Attending/Referring Phys: [place] [employer] Operator Tiffanie Schmitt RDCS Procedure CPT: Indications: I16.0 Hypertensive urgency Cardiac Hx: Fm hx of heart disease. Technical Quality: Good Contrast 1: Total Dose (mL): Contrast 2: Total Dose (mL): MEASUREMENTS (Male / Female) Normal Values 2D ECHO LV Diastolic Diameter PLAX 4.3 cm 4.2 - 5.9 / 3.9 - 5.3 cm LV Systolic Diameter PLAX 2.4 cm IVS Diastolic Thickness 1.6 cm 0.6 - 1.0 / 0.6 - 0.9 cm LVPW Diastolic Thickness 1.8 cm 0.6 - 1.0 / 0.6 - 0.9 cm LV Relative Wall Thickness 0.8 RV Internal Dim ED PLAX 2.5 cm LA Volume 79.4 cm??? 18 - 58 / 22 - 52 cm??? M-MODE Aortic Root Diameter MM 3.4 cm LA Systolic Diameter MM 3.5 cm LA Ao Ratio MM 1.0 MV E Point Septal Separation 0.7 cm AV Cusp Separation MM 2.4 cm DOPPLER AV Peak Velocity 128.6 cm/s AV Peak Gradient 6.6 mmHg AI Peak Velocity 228.0 cm/s AI Peak Gradient 20.8 mmHg AI Pressure Half Time 355.2 ms MV Area PHT 4.9 cm??? MR Peak Velocity 437.6 cm/s MR Peak Gradient 76.6 mmHg Mitral E Point Velocity 82.2 cm/s Mitral A Point Velocity 57.9 cm/s Mitral E to A Ratio 1.4 MV Deceleration Time 155.2 ms MV E' Velocity 7.8 cm/s Mitral E to MV E' Ratio 10.5 TR Peak Velocity 148.5 cm/s TR Peak Gradient 8.8 mmHg Right Ventricular Systolic Press 13.8 mmHg FINDINGS Left Ventricle Moderate LVH.. Left ventricular cavity size normal. Left ventricular ejection fraction is estimated at 55-60 %. Grade 1 diastolic dysfunction. Right Ventricle The right ventricle is normal in size and function. Right Atrium The right atrium is normal in size. Left Atrium Severely increased left atrial volume. Mildly increased left atrial area. Mitral Valve Structurally normal mitral valve without significant stenosis or prolapse. There is mild mitral regurgitation. Mitral valve thickened. Aortic Valve Structurally normal aortic valve without significant sclerosis or stenosis. There is trace aortic regurgitation. Tricuspid Valve Structurally normal tricuspid valve without significant stenosis. Pulmonary artery systolic pressure is normal. Trace tricuspid regurgitation. Pulmonic Valve Structurally normal pulmonic valve without significant stenosis. There is no pulmonic regurgitation. Pericardium Normal pericardium without effusion. Aorta Normal aortic root dimension. CONCLUSIONS Normal left ventricular dimension and systolic function. Moderate concentric LVH Previewed by: Dr. Jose Shahid MD (Electronically Signed) Final Date: 23 May 2022 11:22
== END | disposition home or self-care (01) ==
LOC: RADECHMAIN 08:11
PROVIDERS: ATTEND Family Medicine
DX: I16.0 Hypertensive urgency (principal); I08.8 Other rheumatic multiple valve diseases
CPT/HCPCS: 93306

== ENCOUNTER → 2022-06-18 | Outpatient (CLI) | payer BC ==
[2022-06-18 14:57] LABS: HCT 38.1 % (39.6-50.0); HGB 12.4 g/dL (13.0-17.0); MCH 28.4 pg (27.0-32.0); MCHC 32.5 g/dL (32.0-37.0); MCV 87.4 fL (80.0-97.0); NRBC Per 100 WBC 0 /100 WBCS (0.0-0.0); Platelet Count 571 X 10*3/uL (140-440); RBC 4.36 X 10*6/uL (4.40-5.60); RDW 14.4 % (11.5-14.5); WBC 5.29 X 10*3/uL (4.50-10.00)
[2022-06-18 15:15] LABS: African American GFR (CKD) 68.7 (60.0-200.0); BUN/Creat Ratio 19.92 Ratio (12.00-20.00); Blood Urea Nitrogen 25.9 mg/dL (9.0-27.0); Calcium 9.2 mg/dL (8.7-10.3); Chloride 104 mmol/L (96-109); Chol/HDL Ratio 4.09 Ratio; Glucose 118 mg/dL (70-110); LDL Cholesterol,Calculated 81.8 mg/dL (0.0-131.0); Non-African American GFR(CKD) 59.3 (60.0-200.0); Sodium 147 mmol/L (135-145)
== END | disposition home or self-care (01) ==
LOC: LABWHC1 10:14
PROVIDERS: ATTEND Internal Medicine Interventional Cardiology
DX: I10 Essential (primary) hypertension (principal); E78.2 Mixed hyperlipidemia
CPT/HCPCS: 36415; 80048; 80061; 82088; 82533; 84244; 84443; 85027

== ENCOUNTER → 2022-06-30 | Outpatient (CLI) | payer BC ==
--- NOTE | 2022-06-30 09:25 | US ---
EXAMINATION TYPE: US renal artery duplex complete DATE OF EXAM: 06/30/2022 COMPARISON: NONE CLINICAL HISTORY: 61year-old male I10 HYPERTENSION. TECHNIQUE: Duplex Doppler ultrasound examination of the abdominal aorta and renal arteries. Grayscale sonographic images of the kidneys. FINDINGS: Manager Data notes: technical limitations due to patient's body habitus and large amount of overlying bowel content. The aorta and right kidney appear unremarkable. There are cysts in the left kidney, l argest measuring 4.0 x 3.2 x 3.9cm. RIGHT renal artery velocities appear slightly elevated. Limited e valuation of left renal artery; no evidence of stenosis as visualized. MEASUREMENTS: RENAL SIZE: Rt Kidney: 11.3 x 5.3 x 4.8cm Lt Kidney: 12.5 x 5.5 x 3.8cm No hydronephrosis on either side. Abdominal aortic peak systolic velocity 136.5 cm/s RESISTANCE INDEX Right: 0.69 Left: 0.63 RA/AO RATIO (< 3.5 ) Right: 1.5 Left: 1.0 RA VELOCITY ( < 180 cm/s) Right: 201.1cm/s Left: 140.9cm/s IMPRESSION: 1. Assessment limited due to large body habitus and prominent bowel gas. Portions of the left renal a rtery are difficult to visualize. 2. Right renal artery velocity is mildly elevated at 201 cm/s. However, the renal artery aortic ratio is acceptable. Consider further CTA or contrast enhanced MRA evaluation of the renal arteries, parti cularly for assessment of the right side.
== END | disposition home or self-care (01) ==
LOC: RADUSWWP 08:01
PROVIDERS: ATTEND Internal Medicine Cardiovascular Disease
DX: I10 Essential (primary) hypertension (principal)
CPT/HCPCS: 93975

== ENCOUNTER → 2022-07-24 | Outpatient (CLI) | payer BC ==
--- NOTE | 2022-07-26 09:31 | CT ---
EXAMINATION TYPE: CT angio abdomen CT DLP: 1536.20 mGycm, Automated exposure control for dose reduction was used. DATE OF EXAM: 07/24/2022 4:13 PM COMPARISON: THIS EXAM WAS READ DURING PACS DOWNTIME, NO PRIORS AVAILABLE. CLINICAL INDICATION:Male, 61 years old with history of I10 HTN,R53.83 FATIGUE;, fatigue and high BP TECHNIQUE: Multiple thin slice sub-millimeter images were obtained through the abdomen after adminis tration of contrast. 3-D reconstructed images and maximum intensity projection images were obtained of the abdomen. CT Contrast: Contrast used:90 mL of Isovue 370 without and with IV Contrast, Oral contrast used: None FINDINGS: CTA Abdomen and pelvis: The abdominal aorta does not demonstrate aneurysmal dilatation. Atherosclero tic plaquing is identified within the abdominal aorta. The origins of the superior mesenteric artery , renal arteries, inferior mesenteric artery, and celiac axis are patent. The iliac vessels are norm al in morphology. There is one renal artery bilaterally which are patent without evidence of atherosclerosis. LOWER CHEST: No evidence of focal consolidation, pneumothorax or pleural effusion. LIVER: Scattered hypodensities that are too small to characterize. GALLBLADDER AND BILE DUCTS: Unremarkable. PANCREAS: Unremarkable. SPLEEN: Unremarkable. ADRENAL GLANDS: Unremarkable. KIDNEYS AND URETERS: No evidence of hydronephrosis or renal calculus. Renal cortical cysts , one of w hich is hyperdense on the left and exophytic measuring up tor 11 mm. PELVIS BLADDER: Unremarkable REPRODUCTIVE: Unremarkable. ABDOMEN & PELVIS STOMACH AND BOWEL: Circumferential thickening of the distal esophagus. No evidence of bowel obstructi on. Appendix is normal. PERITONEUM: No evidence of pneumoperitoneum or free fluid. VASCULATURE: No evidence of aortic aneurysm. MUSCULOSKELETAL: No acute osseous abnormalities, multilevel disc degeneration changes are seen throug hout the spine. LYMPH NODES: No gross evidence for lymphadenopathy. SOFT TISSUE/ABDOMINAL WALL: Fat-containing umbilical hernia is present. IMPRESSION 1. The bilateral renal arteries are patent without evidence of stenosis. No evidence of vascular occ lusion. No evidence of dissection or aneurysm. 2. Mild atherosclerosis of the arterial vasculature. 3. Indeterminate left renal cortical cyst. Consider dedicated MRI/CT with and without IV contrast dee al mass protocol for further characterization. 4. Circumferential wall thickening of the distal esophagus correlate for esophagitis.
== END | disposition home or self-care (01) ==
LOC: RADCTMAIN 15:23
PROVIDERS: ATTEND Internal Medicine Cardiovascular Disease
DX: I71.4 Abdominal aortic aneurysm, without rupture (principal); K22.89 Other specified disease of esophagus; I10 Essential (primary) hypertension
CPT/HCPCS: 74175; Q9967

== ENCOUNTER → 2022-09-20 | Outpatient (CLI) | payer BC ==
[2022-09-21 17:35] LABS: African American GFR (CKD) 54.7 (60.0-200.0); Albumin 4.3 g/dL (3.8-4.9); Albumin/Globulin Ratio 1.94 (1.60-3.17); Anion Gap 12.3 mmol/L (10.00-18.00); BUN/Creat Ratio 22.42 Ratio (12.00-20.00); Blood Urea Nitrogen 35.2 mg/dL (9.0-27.0); Calcium 8.9 mg/dL (8.7-10.3); Carbon Dioxide 30.1 mmol/L (20.0-27.5); Globulin 2.2 g/dL (1.6-3.3); Non-African American GFR(CKD) 47.2 (60.0-200.0); Potassium 2.8 mmol/L (3.5-5.5); Total Bilirubin 0.5 mg/dL (0.30-1.20); Total Protein 6.5 g/dL (6.2-8.2)
== END | disposition home or self-care (01) ==
LOC: LABWHC1 10:26
PROVIDERS: ATTEND Internal Medicine
DX: I10 Essential (primary) hypertension (principal)
CPT/HCPCS: 36415; 80053; 83835

== ENCOUNTER 2022-11-21 01:40 | Emergency (ER) | payer BC ==
[2022-11-21 01:59] VITALS: RESP 16; TEMP 97.4
[2022-11-21] MEDS ORDERED: NITROGLYCERIN SL TABS 0.4 MG TAB SUBLINGUAL STA (02:38)
[2022-11-21 02:47] LABS: Basophils % (A) 1 %; Eosinophils # (A) 0.3 k/uL (0-0.7); Eosinophils % (A) 7 %; HCT 37.6 % (39.0-53.0); HGB 13.1 gm/dL (13.0-17.5); Lymphocytes # (A) 0.9 k/uL (1.0-4.8); Lymphocytes % (A) 19 %; MCH 30.9 pg (25.0-35.0); MCHC 34.8 g/dL (31.0-37.0); MCV 88.7 fL (80.0-100.0); Mean Platelet Volume 9.3; Monocytes # (A) 0.4 k/uL (0-1.0); Monocytes % (A) 7 %; Neutrophils % (A) 62 %; Platelet Count 542 k/uL (150-450); RBC 4.24 m/uL (4.30-5.90); RDW 13.9 % (11.5-15.5); WBC 4.8 k/uL (3.8-10.6)
[2022-11-21 02:56] LABS: Calcium 8.4 mg/dL (8.4-10.2); Magnesium 2.3 mg/dL (1.6-2.3); Total Bilirubin 0.7 mg/dL (0.2-1.3); Total Protein 6.8 g/dL (6.3-8.2)
[2022-11-21 03:22] LABS: Partial Thromboplastin Time 25.9 sec (22.0-30.0); Prothrombin Time 10.5 sec (9.0-12.0)
--- NOTE | 2022-11-21 04:35 | ED ---
Arrhythmia/Palpitations HPI - General Chief Complaint: Arrhythmia/Palpitations Stated Complaint: Hypertension Time Seen by Provider: 11/21/22 02:23 Source: patient, RN notes reviewed Mode of arrival: EMS Limitations: no limitations - History of Present Illness Initial Comments: This is a 62-year-old male who presents to the emergency department for elevated blood pressure. Patient states that within the last year, he was diagnosed with hypertension. He went through three stress tests and was told that his heart was very healthy. He was subsequently referred to nephrology and told that his kidneys were the cause of his elevated blood pressure. He is currently taking clonidine, metoprolol, losartan, and spironolactone to treat his elevated blood pressure. One week ago his amlodipine was discontinued. States that when he was sleeping, he started to have a headache and felt like he had pressure in his eyes. He checked his blood pressure, and states that it was approximately 235/110, prompting him to call EMS. Denies any chest pain or shortness of breath. Denies any fevers, chills, sore throat, cough, dyspnea, chest pain, pal pitations, abdominal pain, nausea, vomiting, diarrhea, or back pain. - Related Data Home Medications Medication Instructions Recorded Confirmed amLODIPine [Norvasc] 10 mg PO DAILY 08/09/17 11/21/22 Aspirin 81 mg PO DAILY 11/21/22 11/21/22 Metoprolol Tartrate [Lopressor] 75 mg PO BID 11/21/22 11/21/22 Potassium Chloride [Klor-Con M20] 80 meq PO DAILY 11/21/22 11/21/22 cloNIDine HCL [Catapres] 0.3 mg PO BID 11/21/22 11/21/22 hydroCHLOROthiazide 50 mg PO DAILY 11/21/22 11/21/22 Previous Rx's Medication Instructions Recorded Losartan [Cozaar] 100 mg PO DAILY #60 tab 08/14/17 Allergies Allergy/AdvReac Type Severity Reaction Status Date / Time No Known Allergies Allergy Verified 11/21/22 01:49 Review of Systems ROS Statement: Those systems with pertinent positive or pertinent negative responses have been documented in the HPI. ROS Other: All systems not noted in ROS Statement are negative. Past Medical History Past Medical History: Hypertension, Renal Disease History of Any Multi-Drug Resistant Organisms: None Reported Past Surgical History: No Surgical Hx Reported Past Anesthesia/Blood Transfusion Reactions: No Reported Reaction Past Psychological History: No Psychological Hx Reported Smoking Status: Never smoker Past Alcohol Use History: None Reported Past Drug Use History: None Reported - Past Family History Father Family Medical History: Myocardial Infarction ([place]) (at age 50 ) Additional Family Medical History / Comment(s): [place] at age 50 Mother Family Medical History: Diabetes Mellitus General Exam General appearance: alert, in no apparent distress Head exam: Present: atraumatic, normocephalic, normal inspection Eye exam: Present: normal appearance, PERRL, EOMI. Absent: scleral icterus, conjunctival injection, periorbital swelling Respiratory exam: Present: normal lung sounds bilaterally. Absent: respiratory distress, wheezes, rales, rhonchi, stridor Cardiovascular Exam: Present: regular rate, normal rhythm, normal heart sounds. Absent: systolic murmur, diastolic murmur, rubs, gallop, clicks Neurological exam: Present: alert, oriented X3, CN II-XII intact Psychiatric exam: Present: normal affect, normal mood Skin exam: Present: warm, dry, intact, normal color. Absent: rash Course Vital Signs 11/21/22 11/21/22 11/21/22 01:49 02:00 02:52 Temperature 97.4 F L Pulse Rate 56 L 52 L Pulse Rate [ 49 L Bilateral Supine Radial] Respiratory 16 Rate Blood Pressure 211/80 192/70 O2 Sat by Pulse 97 Oximetry 11/21/22 11/21/22 03:00 04:54 Temperature 97.4 F L Pulse Rate 49 L 51 L Pulse Rate [ Bilateral Supine Radial] Respiratory 16 Rate Blood Pressure 163/79 168/92 O2 Sat by Pulse 97 Oximetry Medical Decision Making - Medical Decision Making This is a 62-year-old male who presents to the emergency department for elevated blood pressure. Was pt. sent in by a medical professional or institution? @ -No Did you speak to anyone other than the patient for history? @ -His Did you review nursing and triage notes? @ -Disagree, patient denies any palpitations and states that symptoms are more so related to a headache and eye pressure. Were old charts reviewed? @ -No Differential Diagnosis? @ -Differential Headache: Migraine, tension, cluster, carbon monoxide, central venous thrombosis, pension karma temporal arteritis, acute closure glaucoma, intercranial hemorrhage, mastoiditis, sinusitis, head injury, this is not meant to be an all-inclusive list. EKG interpreted by me (3pts min.)? @ -Sinus bradycardia. Ventricular rate 51 bpm, MO interval 181 ms, QRS duration 96 ms, QTC 416 ms. What testing was considered but not performed? (CT, X-rays, U/S, labs)? Why? @ -None What meds were considered but not given? Why? @ -None Did you discuss the management of the patient with other professionals? @ -No Did you reconcile home meds? @ -No Was smoking cessation discussed for >3mins.? @ -No Was critical care preformed (if so, how long)? @ -No Were there social determinants of health that impacted care today? How? (Homelessness, low income, unemployed, alcoholism, drug addiction, transportation, low edu. Level, literacy, decrease access to med. care, [facility], rehab)? @ -No Was there de-escalation of care discussed even if they declined? (Discuss DNR or withdrawal of care, Hospice)? @ -No What co-morbidities impacted this encounter? (DM, HTN, Smoking, COPD, CAD, Cancer, CVA, Hep., AIDS, mental health diagnosis, sleep apnea, morbid obesity)? @ -Hypertension and renal disease Was patient admitted / discharged? @ -Discharged. Lab work obtained and found to be nonactionable. He was given a dose of sublingual nitroglycerin. His blood pressure improved to 163/79. Patient states that the headache and pressure in his eyes resolved. The bradycardia was discussed with the patient, and he states that his heart rate is often in the 40s. This is not a new problem and he is not symptomatic in terms of chest pain or palpitations. Patient is stable for discharge home at this time. He is instructed to contact his primary care provider and motor scooter mechanic when their offices open this morning for a follow-up appointment and medication adjustments if needed. Drug Therapy requiring intensive monitoring for toxicity (Heparin, Nitro, Insulin, Cardizem)? @ -None Were any procedures done? @ -None Diagnosis/symptom? @ -Hypertension Acute, or Chronic, or Acute on Chronic? @ -acute on chronic Uncomplicated (without systemic symptoms) or Complicated (systemic symptoms)? @ -Complicated in terms of a headache and eye pressure Side effects of treatment? @ -None Exacerbation, Progression, or Severe Exacerbation] @ -Exacerbation Poses a threat to life or bodily function? @ -May become life-threatening if he ends up having a stroke due to the elevated blood pressure. Return precautions reviewed in depth, the patient is instructed to return to the emergency department with any new, worsening, or concerning symptoms. Patient verbalized understanding. This case was discussed in detail with the attending ED physician. Presentation, findings, and treatment plan discussed in detail as well. - Lab Data Result diagrams: 11/21/22 02:03 11/21/22 02:03 Lab Results 11/21/22 11/21/22 11/21/22 Range/Units 02:03 02:03 02:03 WBC 4.8 (3.8-10.6) k/uL RBC 4.24 L (4.30-5.90) m/uL Hgb 13.1 (13.0-17.5) gm/dL Hct 37.6 L (39.0-53.0) % MCV 88.7 (80.0-100.0) fL MCH 30.9 (25.0-35.0) pg MCHC 34.8 (31.0-37.0) g/dL RDW 13.9 (11.5-15.5) % Plt Count 542 H (150-450) k/uL MPV 9.3 Neutrophils % 62 % Lymphocytes % 19 % Monocytes % 7 % Eosinophils % 7 % Basophils % 1 % Neutrophils # 3.0 (1.3-7.7) k/uL Lymphocytes # 0.9 L (1.0-4.8) k/uL Monocytes # 0.4 (0-1.0) k/uL Eosinophils # 0.3 (0-0.7) k/uL Basophils # 0.0 (0-0.2) k/uL PT 10.5 (9.0-12.0) sec INR 1.0 (<1.2) APTT 25.9 (22.0-30.0) sec Sodium 143 (137-145) mmol/L Potassium 4.0 (3.5-5.1) mmol/L Chloride 109 H (98-107) mmol/L Carbon Dioxide 26 (22-30) mmol/L Anion Gap 8 mmol/L BUN 33 H (9-20) mg/dL Creatinine 1.37 H (0.66-1.25) mg/dL Est GFR (CKD-EPI)AfAm 64 (>60 ml/min/1.73 sqM) Est GFR (CKD-EPI)NonAf 55 (>60 ml/min/1.73 sqM) Glucose 130 H (74-99) mg/dL Calcium 8.4 (8.4-10.2) mg/dL Magnesium 2.3 (1.6-2.3) mg/dL Total Bilirubin 0.7 (0.2-1.3) mg/dL AST 28 (17-59) U/L ALT 23 (4-49) U/L Alkaline Phosphatase 65 (38-126) U/L Troponin I (0.000-0.034) ng/mL Total Protein 6.8 (6.3-8.2) g/dL Albumin 4.0 (3.5-5.0) g/dL 11/21/22 Range/Units 02:03 WBC (3.8-10.6) k/uL RBC (4.30-5.90) m/uL Hgb (13.0-17.5) gm/dL Hct (39.0-53.0) % MCV (80.0-100.0) fL MCH (25.0-35.0) pg MCHC (31.0-37.0) g/dL RDW (11.5-15.5) % Plt Count (150-450) k/uL MPV Neutrophils % % Lymphocytes % % Monocytes % % Eosinophils % % Basophils % % Neutrophils # (1.3-7.7) k/uL Lymphocytes # (1.0-4.8) k/uL Monocytes # (0-1.0) k/uL Eosinophils # (0-0.7) k/uL Basophils # (0-0.2) k/uL PT (9.0-12.0) sec INR (<1.2) APTT (22.0-30.0) sec Sodium (137-145) mmol/L Potassium (3.5-5.1) mmol/L Chloride (98-107) mmol/L Carbon Dioxide (22-30) mmol/L Anion Gap mmol/L BUN (9-20) mg/dL Creatinine (0.66-1.25) mg/dL Est GFR (CKD-EPI)AfAm (>60 ml/min/1.73 sqM) Est GFR (CKD-EPI)NonAf (>60 ml/min/1.73 sqM) Glucose (74-99) mg/dL Calcium (8.4-10.2) mg/dL Magnesium (1.6-2.3) mg/dL Total Bilirubin (0.2-1.3) mg/dL AST (17-59) U/L ALT (4-49) U/L Alkaline Phosphatase (38-126) U/L Troponin I <0.012 (0.000-0.034) ng/mL Total Protein (6.3-8.2) g/dL Albumin (3.5-5.0) g/dL Disposition Clinical Impression: Hypertension Disposition: HOME SELF-CARE Instructions (If sedation given, give patient instructions): Chronic Hyperten ching (ED), Hypertension (ED) Additional Instructions: Return to the emergency department with any new, worsening, or concerning symptoms. Contact your motor scooter mechanic and primary care provider when their offices open this morning and make sure that you are seen by at least one of the providers today for medication adjustments. Is patient prescribed a controlled substance at d/c from ED?: No Referrals: Sanjeev Spivey DO [Primary Care Provider] - 1-2 days
[2022-11-21 04:55] VITALS: BP 168/92; PULSE 51
== END 2022-11-21 04:55 | disposition home or self-care (01) ==
LOC: EC 01:40
DX: I10 Essential (primary) hypertension (principal); Z79.899 Other long term (current) drug therapy; Z79.82 Long term (current) use of aspirin
CPT/HCPCS: 36415; 80053; 83735; 84484; 85025; 85610; 85730; 93005; 99285

== ENCOUNTER → 2023-05-02 | Outpatient (CLI) | payer BC ==
[2023-05-03 08:07] LABS: Albumin 4.1 d/dL (3.8-4.9); BUN/Creat Ratio 20.07 Ratio (12.00-20.00); Blood Urea Nitrogen 28.1 mg/dL (9.0-27.0); Calcium 9.1 mg/dL (8.7-10.3); Carbon Dioxide 23.3 mmol/L (21.6-31.8); Chloride 107 mmol/L (96-109); Glucose 103 mg/dL (70-110); Phosphorus 4.3 mg/dL (2.4-5.1); Potassium 4.9 mmol/L (3.5-5.5); Sodium 141 mmol/L (135-145)
[2023-05-03 13:59] LABS: Microalbumin Creatinine Ratio <6 mg/g Cr (0-30)
== END | disposition home or self-care (01) ==
LOC: LABWHC1 10:16
PROVIDERS: ATTEND Internal Medicine
DX: N17.9 Acute kidney failure, unspecified (principal)
CPT/HCPCS: 36415; 80069; 82043; 82570

== ENCOUNTER → 2023-05-16 | Outpatient (CLI) | payer BC ==
[2023-05-16 13:59] LABS: Appearance,Urine Clear (Clear); Bilirubin,Urine Negative (Negative); Blood,Urine Negative (Negative); Color,Urine Yellow (Yellow); Ketones,Urine Trace (Negative); Nitrite,Urine Negative (Negative); PH, Urine 5.5; Specific Gravity,Urine 1.028 (1.001-1.030)
== END | disposition home or self-care (01) ==
LOC: LABWHC1 10:14
PROVIDERS: ATTEND Internal Medicine
DX: N17.9 Acute kidney failure, unspecified (principal)
CPT/HCPCS: 81003

== ENCOUNTER → 2023-10-05 | Outpatient (CLI) | payer BC ==
[2023-10-05 15:50] LABS: Albumin 4.3 g/dL (3.8-4.9); BUN/Creat Ratio 17.94 Ratio (12.00-20.00); Blood Urea Nitrogen 28.7 mg/dL (9.0-27.0); Calcium 9.4 mg/dL (8.7-10.3); Carbon Dioxide 25.8 mmol/L (21.6-31.8); Chloride 103 mmol/L (96-109); Glucose 107 mg/dL (70-110); Phosphorus 4.5 mg/dL (2.4-5.1); Potassium 4.2 mmol/L (3.5-5.5); Sodium 141 mmol/L (135-145)
[2023-10-06 02:11] LABS: Appearance,Urine Clear (Clear); Bilirubin,Urine Negative (Negative); Blood,Urine Negative (Negative); Color,Urine Yellow (Yellow); Ketones,Urine Negative (Negative); Nitrite,Urine Negative (Negative); Specific Gravity,Urine 1.017 (1.001-1.030); Urobilinogen,Urine 0.2 E.U./DL
[2023-10-06 03:35] LABS: Microalbumin Creatinine Ratio <13 mg/g Cr (0-30); Urine Creatinine 92.1 mg/dL (39.0-259.0)
== END | disposition home or self-care (01) ==
LOC: LABWHC1 11:56
PROVIDERS: ATTEND Internal Medicine
DX: N17.9 Acute kidney failure, unspecified (principal)
CPT/HCPCS: 36415; 80069; 81003; 82043; 82570

== ENCOUNTER 2024-03-01 09:00 | Emergency (ER) | payer OTHER, BC ==
[2024-03-01] MEDS: DIPH,PERTUS(ACELL)TETVAC-LF 0.5 ML VIAL IM ONE (09:54)
[2024-03-01] MEDS: LIDOCAINE/EPINEPHR/TETRACAINE 5 ML BOTTLE TOPICAL ONE (10:51)
--- NOTE | 2024-03-01 11:31 | ED ---
Wound/Laceration HPI - General Chief Complaint: Wound/Laceration Stated Complaint: Finger Lac Time Seen by Provider: 03/01/24 09:17 Source: patient, RN notes reviewed Mode of arrival: ambulatory Limitations: no limitations - History of Present Illness Initial Comments: 63-year-old male on aspirin presenting with laceration on left fifth digit. States he was at work when he he accidentally cut his finger on a metal chip. He states he came in today because he cannot get the wound to stop bleeding. Last tetanus is unknown. He is right-hand dominant. Denies blunt trauma to the area. - Related Data Home Medications Medication Instructions Recorded Confirmed amLODIPine [Norvasc] 10 mg PO DAILY 08/09/17 11/21/22 Aspirin 81 mg PO DAILY 11/21/22 11/21/22 Metoprolol Tartrate [Lopressor] 75 mg PO BID 11/21/22 11/21/22 Potassium Chloride [Klor-Con M20] 80 meq PO DAILY 11/21/22 11/21/22 cloNIDine HCL [Catapres] 0.3 mg PO BID 11/21/22 11/21/22 hydroCHLOROthiazide 50 mg PO DAILY 11/21/22 11/21/22 Previous Rx's Medication Instructions Recorded Losartan [Cozaar] 100 mg PO DAILY #60 tab 08/14/17 Allergies Allergy/AdvReac Type Severity Reaction Status Date / Time No Known Allergies Allergy Verified 03/01/24 09:05 Review of Systems ROS Statement: Those systems with pertinent positive or pertinent negative responses have been documented in the HPI. ROS Other: All systems not noted in ROS Statement are negative. Past Medical History Past Medical History: Hypertension, Renal Disease History of Any Multi-Drug Resistant Organisms: None Reported Past Surgical History: No Surgical Hx Reported Past Anesthesia/Blood Transfusion Reactions: No Reported Reaction Past Psychological History: No Psychological Hx Reported Smoking Status: Never smoker Past Alcohol Use History: None Reported Past Drug Use History: None Reported - Past Family History Father Family Medical History: Myocardial Infarction ([place]) (at age 50 ) Additional Family Medical History / Comment(s): [place] at age 50 Mother Family Medical History: Diabetes Mellitus General Exam Limitations: no limitations Respiratory exam: Present: normal lung sounds bilaterally. Absent: respiratory distress, wheezes, rales, rhonchi, stridor Cardiovascular Exam: Present: regular rate, normal rhythm, normal heart sounds. Absent: systolic murmur, diastolic murmur, rubs, gallop, clicks Extremities exam: Present: full ROM, normal capillary refill, other (3 cm avulsion present on lateral aspect of left fifth digit. There is active bleeding at the site.). Absent: tenderness, pedal edema, joint swelling, calf tenderness Neurological exam: Present: alert, oriented X3, CN II-XII intact Psychiatric exam: Present: normal affect, normal mood Course Vital Signs 03/01/24 09:03 Temperature 98.2 F Pulse Rate 58 L Respiratory 20 Rate Blood Pressure 139/60 O2 Sat by Pulse 98 Oximetry Procedures - Laceration Laceration #1 Consent Obtained: verbal consent Indication: laceration Site: hand Size (cm): 3 Description: linear Depth: simple, single layer Pre-repair: wound explored, irrigated extensively, deep structures intact Complications: bleeding Patient Tolerated Procedure: well Additional Comments: Attempted to control bleeding with Surgifoam however was unsuccessful. LET was then applied and was successful at controlling the bleeding. - Orthopedic Splinting/Casting Injury #1 Upper Extremity Injury Location: finger Upper Extremity Immobilizer: finger (other) (Finger splint applied. Neurovascularly intact) Medical Decision Making - Medical Decision Making Was pt. sent in by a medical professional or institution (, PA, EXAMINATION SCORER, urgent care, hospital, or correction...) When possible be specific @ -No Did you speak to anyone other than the patient for history (EMS, parent, family, police, friend...)? What history was obtained from this source @ -No Did you review nursing and triage notes (agree or disagree)? Why? @ -I reviewed and agree with nursing and triage notes Were old charts reviewed (outside hosp., previous admission, EMS record, old EKG, old radiological studies, urgent care reports/EKG's, correction records)? Report findings @ -No old charts were reviewed Differential Diagnosis (chest pain, altered mental status, abdominal pain women, abdominal pain men, vaginal bleeding, weakness, fever, dyspnea, syncope, headache, dizziness, GI bleed, back pain, seizure, CVA, palpatations, mental health, musculoskeletal)? @ -Differential Musculoskeletal Muscular strain, contusion, ligament sprain, fracture, arthritis, septic arthritis, bursitis, cellulitis, muscle spasm, nerve compression, DVT, arterial occlusion, herpes zoster, electrolyte abnormality, tumor.... This is not meant to be in all inclusive list EKG interpreted by me (3pts min.). @ -None X-rays interpreted by me (1pt min.). @ -None done CT interpreted by me (1pt min.). @ -None done U/S interpreted by me (1pt. min.). @ -None done What testing was considered but not performed or refused? (CT, X-rays, U/S, labs)? Why? @ -X-ray not indicated due to no blunt trauma to the area. What meds were considered but not given or refused? Why? @ -None Did you discuss the management of the patient with other professionals (pr ofessionals i.e. , PA, EXAMINATION SCORER, lab, RT, psych nurse, director social welfare, supervisor grain and yeast plants, teacher, senior grants officer, case management manager)? Give summary @ -No Was smoking cessation discussed for >3mins.? @ -No Was critical care preformed (if so, how long)? @ -No Were there social determinants of health that impacted care today? How? (Homelessness, low income, unemployed, alcoholism, drug addiction, transportation, low edu. Level, literacy, decrease access to med. care, long term, rehab)? @ -No Was there de-escalation of care discussed even if they declined (Discuss DNR or withdrawal of care, Hospice)? DNR status @ -No What co-morbidities impacted this encounter? (DM, HTN, Smoking, COPD, CAD, Cancer, CVA, ARF, Chemo, Hep., AIDS, mental health diagnosis, sleep apnea, morbid obesity)? @ -None Was patient admitted / discharged? Hospital course, mention meds given and route, prescriptions, significant lab abnormalities, going to OR and other pertinent info. @ -Patient was discharged. Patient was seen and evaluated for laceration of left fifth digit. There is a 3 cm avulsion with active bleeding upon examination. Tetanus was updated. Wound was cleaned thoroughly and irrigated. Attempted to control bleeding with Surgifoam however bleeding persisted. LET was then used to control bleeding and was successful. Wound dressed and finger splint applied. Wound care discussed with patient. Return symptoms discussed. Patient discharged in stable condition. Case discussed with Dr. Montero Undiagnosed new problem with uncertain prognosis? @ -No Drug Therapy requiring intensive monitoring for toxicity (Heparin, Nitro, Insulin, Cardizem)? @ -No Were any procedures done? @ -Wound was cleaned and irrigated, LET was applied, wound was dressed and finger splint was placed Diagnosis/symptom? @ -Avulsion of left fifth digit Acute, or Chronic, or Acute on Chronic? @ -Acute Uncomplicated (without systemic symptoms) or Complicated (systemic symptoms)? @ -Uncomplicated Side effects of treatment? @ -No Exacerbation, Progression, or Severe Exacerbation? @ -No Poses a threat to life or bodily function? How? (Chest pain, [place], [place], pneumonia, PE, COPD, DKA, ARF, appy, cholecystitis, CVA, Diverticulitis, Homicidal, Suic idal, threat to staff... and all critical care pts) @ -No Disposition Clinical Impression: Laceration Disposition: HOME SELF-CARE Condition: Stable Instructions (If sedation given, give patient instructions): Finger Laceration (ED) Additional Instructions: Please return to the Emergency Department if symptoms worsen or any other concerns. Is patient prescribed a controlled substance at d/c from ED?: No Referrals: Sanjeev Spivey DO [Primary Care Provider] - 1-2 days Time of Disposition: 11:31
[2024-03-01 12:28] VITALS: BP 141/86; PULSE 62; RESP 18; TEMP 98.1
== END 2024-03-01 11:54 | disposition home or self-care (01) ==
LOC: EC 09:00
DX: S61.217A Laceration without foreign body of left little finger without damage to nail, initial encounter (principal); Z23 Encounter for immunization; W26.8XXA Contact with other sharp object(s), not elsewhere classified, initial encounter
CPT/HCPCS: 12002; 90471; 90715; 99282

== ENCOUNTER → 2024-03-26 | Outpatient (CLI) | payer OTHER, BC ==
[2024-03-26 13:29] LABS: Albumin 4.3 g/dL (3.8-4.9); BUN/Creat Ratio 18.67 Ratio (12.00-20.00); Blood Urea Nitrogen 33.6 mg/dL (9.0-27.0); Calcium 9.1 mg/dL (8.7-10.3); Carbon Dioxide 24.2 mmol/L (21.6-31.8); Chloride 106 mmol/L (96-109); Glucose 105 mg/dL (70-110); Phosphorus 4.4 mg/dL (2.4-5.1); Potassium 4.1 mmol/L (3.5-5.5); Sodium 143 mmol/L (135-145)
[2024-03-26 14:14] LABS: Microalbumin Creatinine Ratio <5 mg/g Cr (0-30)
[2024-03-26 16:46] LABS: Appearance,Urine Clear (Clear); Bilirubin,Urine Negative (Negative); Blood,Urine Negative (Negative); Color,Urine Yellow (Yellow); Ketones,Urine Trace (Negative); Nitrite,Urine Negative (Negative); PH, Urine 5.5; Specific Gravity,Urine 1.023 (1.001-1.030); Urobilinogen,Urine 0.2 E.U./DL
== END | disposition home or self-care (01) ==
LOC: LABWHC1 10:20
PROVIDERS: ATTEND Internal Medicine
DX: N18.31 Chronic kidney disease, stage 3a (principal); N39.0 Urinary tract infection, site not specified
CPT/HCPCS: 36415; 80069; 81003; 82043; 82570

== ENCOUNTER → 2024-09-10 | Outpatient (CLI) | payer BC ==
[2024-09-10 12:46] LABS: Appearance,Urine Clear (Clear); Bilirubin,Urine Negative (Negative); Blood,Urine Negative (Negative); Color,Urine Light Yellow; Glucose,Urine (UA) 4+ (Negative); Ketones,Urine Negative (Negative); Leukocyte Esterase,Urine Negative (Negative); Nitrite,Urine Negative (Negative); PH, Urine 6.5 (5.0-8.0); Protein,Urine Trace (Negative); Specific Gravity,Urine 1.025 (1.001-1.035); Urobilinogen,Urine <2.0 mg/dL (<2.0)
[2024-09-11 08:10] LABS: BUN/Creat Ratio 20.75 Ratio (12.00-20.00); Blood Urea Nitrogen 33.2 mg/dL (9.0-27.0); Chloride 104 mmol/L (96-109); Glucose 111 mg/dL (70-110); Phosphorus 4.3 mg/dL (2.4-5.1); Sodium 144 mmol/L (135-145)
[2024-09-11 08:11] LABS: Albumin 4.2 g/dL (3.8-4.9); Calcium 8.8 mg/dL (8.7-10.3); Carbon Dioxide 28.5 mmol/L (21.6-31.8)
== END | disposition home or self-care (01) ==
LOC: LABWHC1 11:05
PROVIDERS: ATTEND Internal Medicine
DX: N18.31 Chronic kidney disease, stage 3a (principal)
CPT/HCPCS: 36415; 80069; 81003; 82043; 82570; 83970

== ENCOUNTER 2024-10-18 10:11 | Emergency (ER) | payer BC ==
[2024-10-18 10:22] VITALS: TEMP 98
--- NOTE | 2024-10-18 10:40 | ED ---
General Adult HPI - General Chief complaint: Recheck/Abnormal Lab/Rx Stated complaint: low potassium Time Seen by Provider: 10/18/24 10:20 Source: patient, RN notes reviewed, old records reviewed Mode of arrival: ambulatory Limitations: no limitations - History of Present Illness Initial comments: This is a 64-year-old male who states he had blood work yesterday he was called today stating that his potassium is critically low. Patient states that he does not have any symptoms. Patient denies chest pain difficulty breathing or any palpitations. Patient denies any recent fever chills or cough or patient has any nausea vomiting or diarrhea. Patient denies any pain in the abdomen. Patient has any back pain. Patient states he does have a history of this. Patient states he also has a slow heart rate and he is on beta-blockers. Patient states he does take Lasix and does take potassium. - Related Data Home Medications Medication Instructions Recorded Confirmed amLODIPine [Norvasc] 10 mg PO DAILY 08/09/17 11/21/22 Aspirin 81 mg PO DAILY 11/21/22 11/21/22 Metoprolol Tartrate [Lopressor] 75 mg PO BID 11/21/22 11/21/22 Potassium Chloride [Klor-Con M20] 80 meq PO DAILY 11/21/22 11/21/22 cloNIDine HCL [Catapres] 0.3 mg PO BID 11/21/22 11/21/22 hydroCHLOROthiazide 50 mg PO DAILY 11/21/22 11/21/22 Previous Rx's Medication Instructions Recorded Losartan [Cozaar] 100 mg PO DAILY #60 tab 08/14/17 Allergies Allergy/AdvReac Type Severity Reaction Status Date / Time No Known Allergies Allergy Verified 03/01/24 09:05 Review of Systems ROS Statement: Those systems with pertinent positive or pertinent negative responses have been documented in the HPI. ROS Other: All systems not noted in ROS Statement are negative. Past Medical History Past Medical History: Hypertension, Renal Disease History of Any Multi-Drug Resistant Organisms: None Reported Past Surgical History: No Surgical Hx Reported Past Anesthesia/Blood Transfusion Reactions: No Reported Reaction Past Psychological History: No Psychological Hx Reported Smoking Status: Never smoker Past Alcohol Use History: None Reported Past Drug Use History: None Reported - Past Family History Father Family Medical History: Myocardial Infarction ([place]) (at age 50 ) Additional Family Medical History / Comment(s): [place] at age 50 Mother Family Medical History: Diabetes Mellitus General Exam - General Exam Comments Initial Comments: GENERAL: Patient is well-developed and well-nourished. Patient is nontoxic and well- hydrated and is in no acute distress. ENT: Neck is soft and supple. No significant lymphadenopathy is noted. Oropharynx is clear. Moist mucous membranes. Neck has full range of motion without eliciting any pain. EYES: The sclera were anicteric and conjunctiva were pink and moist. Extraocular movements were intact and pupils were equal round and reactive to light. Eyelids were unremarkable. PULMONARY: Unlabored respirations. Good breath sounds bilaterally. No audible rales rho nchi or wheezing was noted. CARDIOVASCULAR: Patient is bradycardic at about 50 beats a minute ABDOMEN: Soft and nontender with normal bowel sounds. No palpable organomegaly was noted. There is no palpable pulsatile mass. SKIN: Skin is clear with no lesions or rashes and otherwise unremarkable. NEUROLOGIC: Patient is alert and oriented x3. Cranial nerves II through XII are grossly intact. Motor and sensory are also intact. Normal speech, volume and content. Symmetrical smile. MUSCULOSKELETAL: Normal extremities with adequate strength and full range of motion. No lower extremity swelling or edema. No calf tenderness. LYMPHATICS: No significant lymphadenopathy is noted PSYCHIATRIC: Normal psychiatric evaluation. Limitations: no limitations Course Vital Signs 10/18/24 10:17 Temperature 98.0 F Pulse Rate 51 L Respiratory 18 Rate Blood Pressure 162/75 O2 Sat by Pulse 100 Oximetry Medical Decision Making - Medical Decision Making EKG is interpreted by myself. EKG shows sinus bradycardia 50 bpm [place] interval 175 QRS is 103 QT interval is 462 QTc is 434. Patient's EKG shows no ST segment elevation or depression Was pt. sent in by a medical professional or institution (, PA, DEPUTY COURT, urgent care, hospital, or detention...) When possible be specific @ -No Did you speak to anyone other than the patient for history (EMS, parent, family, police, friend...)? What history was obtained from this source @ -No Did you review nursing and triage notes (agree or disagree)? Why? @ -I reviewed and agree with nursing and triage notes Were old charts reviewed (outside hosp., previous admission, EMS record, old EKG, old radiological studies, urgent care reports/EKG's, detention records)? Report findings @ -No old charts were reviewed Differential Diagnosis? @ -Hypokalemia, hyperkalemia, hyponatremia, hypomagnesemia, this is not an all- inclusive list EKG interpreted by me (3pts min.). @ -As above X-rays interpreted by me (1pt min.). @ -None done CT interpreted by me (1pt min.). @ -None done U/S interpreted by me (1pt. min.). @ -None done What testing was considered but not performed or refused? (CT, X-rays, U/S, labs)? Why? @ -None What meds were considered but not given or refused? Why? @ -None Did you discuss the management of the patient with other professionals (professionals i.e. , PA, DEPUTY COURT, lab, RT, psych nurse, web content & social media manager, clip on sunglasses assembler, teacher, [place] customs and border officer, family preservation caseworker)? Give summary @ -No Was smoking cessation discussed for >3mins.? @ -No Was critical care preformed (if so, how long)? @ -No Were there social determinants of health that impacted care today? How? (Homelessness, low income, unemployed, alcoholism, drug addiction, transportation, low edu. Level, literacy, decrease access to med. care, penitentiary, rehab)? @ -No Was there de-escalation of care discussed even if they declined (Discuss DNR or withdrawal of care, Hospice)? DNR status @ -No What co-morbidities impacted this encounter? (DM, HTN, Smoking, COPD, CAD, Cancer, CVA, ARF, Chemo, Hep., AIDS, mental health diagnosis, sleep apnea, morbid obesity)? @ -None Was patient admitted / discharged? Hospital course, mention meds given and route, prescriptions, significant lab abnormalities, going to OR and other pertinent info. @ -Patient's potassium was 2.8. Patient was given KCl 20 mill equivalents. Patient was also given K-Dur 40 mill equivalents. Patient will be sent home with strict follow-up with a primary medical care doctor Undiagnosed new problem with uncertain prognosis? @ -No Drug Therapy requiring intensive monitoring for toxicity (Heparin, Nitro, Insulin, Cardizem)? @ -No Were any procedures done? @ -No Diagnosis/symptom? @ -Hypokalemia Acute, or Chronic, or Acute on Chronic? @ -Acute Uncomplicated (without systemic symptoms) or Complicated (systemic symptoms)? @ -Uncomplicated Side effects of treatment? @ -No Exacerbation, Progression, or Severe Exacerbation? @ -No Poses a threat to life or bodily function? How? (Chest pain, [place], [place], pneumonia, PE, COPD, DKA, ARF, appy, cholecystitis, CVA, Diverticulitis, Homicidal, Suicidal, threat to staff... and all critical care pts) @ -No - Lab Data Result diagrams: 10/18/24 10:55 10/18/24 10:55 Lab Results 10/18/24 10/18/24 Range/Units 10:55 10:55 WBC 5.1 (3.8-10.6) k/uL RBC 4.35 (4.30-5.90) m/uL Hgb 12.5 L (13.0-17.5) gm/dL Hct 37.9 L (39.0-53.0) % MCV 87.1 (80.0-100.0) fL MCH 28.7 (25.0-35.0) pg MCHC 33.0 (31.0-37.0) g/dL RDW 15.2 (11.5-15.5) % Plt Count 600 H (150-450) k/uL MPV 10.0 Neutrophils % 62 % Lymphocytes % 18 % Monocytes % 7 % Eosinophils % 9 % Basophils % 0 % Neutrophils # 3.2 (1.3-7.7) k/uL Lymphocytes # 0.9 L (1.0-4.8) k/uL Monocytes # 0.4 (0-1.0) k/uL Eosinophils # 0.5 (0-0.7) k/uL Basophils # 0.0 (0-0.2) k/uL Poikilocytosis Slight Sodium 143 (137-145) mmol/L Potassium 2.8 L (3.5-5.1) mmol/L Chloride 101 (98-107) mmol/L Carbon Dioxide 34 H (22-30) mmol/L Anion Gap 8 mmol/L BUN 34 H (9-20) mg/dL Creatinine 1.52 H (0.66-1.25) mg/dL Est GFR (CKD-EPI)AfAm 56 (>60 ml/min/1.73 sqM) Est GFR (CKD-EPI)NonAf 48 (>60 ml/min/1.73 sqM) Glucose 105 H (74-99) mg/dL Calcium 8.7 (8.4-10.2) mg/dL Magnesium 2.3 (1.6-2.3) mg/dL Total Bilirubin 0.9 (0.2-1.3) mg/dL AST 41 (17-59) U/L ALT 34 (4-49) U/L Alkaline Phosphatase 66 (38-126) U/L Total Protein 6.9 (6.3-8.2) g/dL Albumin 4.3 (3.5-5.0) g/dL Disposition Clinical Impression: Hypokalemia Disposition: HOME SELF-CARE Condition: Good Is patient prescribed a controlled substance at d/c from ED?: No Referrals: Sanjeev Spivey DO [Primary Care Provider] - 1-2 days Time of Disposition: 11:53
[2024-10-18 11:11] LABS: Basophils % (A) 0 %; Eosinophils # (A) 0.5 k/uL (0-0.7); Eosinophils % (A) 9 %; HCT 37.9 % (39.0-53.0); HGB 12.5 gm/dL (13.0-17.5); Lymphocytes # (A) 0.9 k/uL (1.0-4.8); Lymphocytes % (A) 18 %; MCH 28.7 pg (25.0-35.0); MCV 87.1 fL (80.0-100.0); Monocytes # (A) 0.4 k/uL (0-1.0); Monocytes % (A) 7 %; Neutrophils # (A) 3.2 k/uL (1.3-7.7); Neutrophils % (A) 62 %; Platelet Count 600 k/uL (150-450); Poikilocytosis Slight; RBC 4.35 m/uL (4.30-5.90); RDW 15.2 % (11.5-15.5); WBC 5.1 k/uL (3.8-10.6)
[2024-10-18 11:22] LABS: ALT 34 U/L (4-49); AST 41 U/L (17-59); African American GFR (CKD) 56 (>60 ml/min/1.73 sqM); Albumin 4.3 g/dL (3.5-5.0); Alkaline Phosphatase 66 U/L (38-126); Anion Gap 8 mmol/L; Blood Urea Nitrogen 34 mg/dL (9-20); Calcium 8.7 mg/dL (8.4-10.2); Carbon Dioxide 34 mmol/L (22-30); Chloride 101 mmol/L (98-107); Glucose 105 mg/dL (74-99); Magnesium 2.3 mg/dL (1.6-2.3); Non-African American GFR(CKD) 48 (>60 ml/min/1.73 sqM); Potassium 2.8 mmol/L (3.5-5.1); Sodium 143 mmol/L (137-145); Total Bilirubin 0.9 mg/dL (0.2-1.3); Total Protein 6.9 g/dL (6.3-8.2)
[2024-10-18] MEDS: POTASSIUM CHLORIDE ER 20 MEQ TAB.ER PO STA (11:47)
[2024-10-18] MEDS: POTASSIUM CHLORIDE 20 MEQ in WATER FOR INJECTION 1 100ML.BAG IVPB STA (11:51)
[2024-10-18 13:50] VITALS: BP 139/68; PULSE 49; RESP 16
== END 2024-10-18 13:59 | disposition home or self-care (01) ==
LOC: EC 10:11
DX: E87.6 Hypokalemia (principal); R00.0 Tachycardia, unspecified
CPT/HCPCS: 99283; 96365; 96366; 36415; 93005; 80053; 83735; 85025; J3480

== ENCOUNTER 2024-10-25 11:16 | Emergency (ER) | payer BC ==
--- NOTE | 2024-10-25 12:53 | ED ---
Recheck HPI - General Chief Complaint: Recheck/Abnormal Lab/Rx Stated Complaint: potassium low Time Seen by Provider: 10/25/24 12:06 Source: patient, RN notes reviewed Mode of arrival: ambulatory Limitations: no limitations - History of Present Illness Initial Comments: This is a 64-year-old male who presents to the emergency department for low potassium. Patient has a history of hypokalemia and is currently on 20 mEq of potassium daily. States that he had blood work done yesterday, as he gets it done every 2 weeks to monitor his levels. He was told that it was 2.3 and he needed to come here for evaluation. Patient reports minor fatigue but otherwise states that he feels fine. Denies any chest pain or shortness of breath. MD Complaint: abnormal lab - Related Data Home Medications Medication Instructions Recorded Confirmed amLODIPine [Norvasc] 10 mg PO DAILY 08/09/17 11/21/22 Aspirin 81 mg PO DAILY 11/21/22 11/21/22 Metoprolol Tartrate [Lopressor] 75 mg PO BID 11/21/22 11/21/22 Potassium Chloride [Klor-Con M20] 80 meq PO DAILY 11/21/22 11/21/22 cloNIDine HCL [Catapres] 0.3 mg PO BID 11/21/22 11/21/22 hydroCHLOROthiazide 50 mg PO DAILY 11/21/22 11/21/22 Previous Rx's Medication Instructions Recorded Losartan [Cozaar] 100 mg PO DAILY #60 tab 08/14/17 Allergies Allergy/AdvReac Type Severity Reaction Status Date / Time No Known Allergies Allergy Verified 10/25/24 12:05 Review of Systems ROS Statement: Those systems with pertinent positive or pertinent negative responses have been documented in the HPI. ROS Other: All systems not noted in ROS Statement are negative. Past Medical History Past Medical History: Hypertension, Renal Disease History of Any Multi-Drug Resistant Organisms: None Reported Past Surgical History: No Surgical Hx Reported Past Anesthesia/Blood Transfusion Reactions: No Reported Reaction Past Psychological History: No Psychological Hx Reported Smoking Status: Never smoker Past Alcohol Use History: None Reported Past Drug Use History: None Reported - Past Family History Father Family Medical History: Myocardial Infarction ([place]) (at age 50 ) Additional Family Medical History / Comment(s): [place] at age 50 Mother Family Medical History: Diabetes Mellitus General Exam Limitations: no limitations General appearance: alert, in no apparent distress Head exam: Present: atraumatic, normocephalic, normal inspection Eye exam: Present: normal appearance, PERRL, EOMI. Absent: scleral icterus, conjunctival injection, periorbital swelling Respiratory exam: Present: normal lung sounds bilaterally. Absent: respiratory distress, wheezes, rales, rhonchi, stridor Cardiovascular Exam: Present: regular rate, normal rhythm, normal heart sounds. Absent: systolic murmur, diastolic murmur, rubs, gallop, clicks Neurological exam: Present: alert, oriented X3, CN II-XII intact Psychiatric exam: Present: normal affect, normal mood Skin exam: Present: warm, dry, intact, normal color. Absent: rash Course Vital Signs 10/25/24 10/25/24 12:03 14:46 Temperature 98.4 F 98.1 F Pulse Rate 51 L 48 L Respiratory 18 17 Rate Blood Pressure 193/76 197/79 O2 Sat by Pulse 97 99 Oximetry Medical Decision Making - Medical Decision Making This is a 64-year-old male who presents to the emergency department for hypokalemia. Was pt. sent in by a medical professional or institution? @ -PCP Did you speak to anyone other than the patient for history? @ -No Did you review nursing and triage notes? @ -Yes, and I agree, it is accurate with regards to the patient's symptoms. Were old charts reviewed? @ -No Differential Diagnosis? @ -Medication induced, dietary intake, adrenal issues, digestive problems, this is not meant to be an all-inclusive list. EKG interpreted by me (3pts min.)? @ -EKG interpreted by me demonstrating the following: Sinus bradycardia. Ventricular rate 49 bpm, [place] interval 179 ms, QRS duration 107 ms, QTc 341 ms. X-rays interpreted by me (1pt min.)? @ -Not obtained CT interpreted by me (1pt min.)? @ -Not obtained U/S interpreted by me (1pt. min.)? @ -Not obtained What testing was considered but not performed? (CT, X-rays, U/S, labs)? Why? @ -None What meds were considered but not given? Why? @ -None Did you discuss the management of the patient with other professionals? @ -No Did you reconcile home meds? @ -No Was smoking cessation discussed for >3mins.? @ -No Was critical care preformed (if so, how long)? @ -No Were there social determinants of health that impacted care today? How? ( Homelessness, low income, unemployed, alcoholism, drug addiction, transportation, low edu. Level, literacy, decrease access to med. care, [facility], rehab)? @ -No Was there de-escalation of care discussed even if they declined? (Discuss DNR or withdrawal of care, Hospice)? @ -No What co-morbidities impacted this encounter? (DM, HTN, Smoking, COPD, CAD, Cancer, CVA, Hep., AIDS, mental health diagnosis, sleep apnea, morbid obesity)? @ -Renal disease Was patient admitted / discharged? @ -Discharged. Lab work demonstrates hypokalemia with a potassium of 2.7. Renal function is improved when compared with prior. Patient states that he has mild fatigue, which is an ongoing issue for him. He is otherwise asymptomatic. 60 mEq of K-Dur administered for the hypokalemia. Advised he increase the dose he is taking at home to 20 mEq twice daily as advised by his primary care provider and to follow-up for reevaluation and repeat blood work. Patient discharged home in stable condition. Case discussed with ED attending Dr. Goss. Return precautions reviewed in depth, the patient is instructed to return to the emergency department with any new, worsening, or concerning symptoms. Patient verbalized understanding. Undiagnosed new problem with uncertain prognosis? @ -None Drug Therapy requiring intensive monitoring for toxicity (Heparin, Nitro, Insulin, Cardizem)? @ -None Were any procedures done? @ -None Diagnosis/symptom? @ -Hypokalemia Acute, or Chronic, or Acute on Chronic? @ -Acute Uncomplicated (without systemic symptoms) or Complicated (systemic symptoms)? @ -Uncomplicated Side effects of treatment? @ -None Exacerbation, Progression, or Severe Exacerbation] @ -Not applicable Poses a threat to life or bodily function? @ -No - Lab Data Result diagrams: 10/25/24 13:31 10/25/24 13:31 Lab Results 10/25/24 10/25/24 Range/Units 13:31 13:31 WBC 4.7 (3.8-10.6) k/uL RBC 4.45 (4.30-5.90) m/uL Hgb 13.0 (13.0-17.5) gm/dL Hct 38.9 L (39.0-53.0) % MCV 87.4 (80.0-100.0) fL MCH 29.3 (25.0-35.0) pg MCHC 33.5 (31.0-37.0) g/dL RDW 15.3 (11.5-15.5) % Plt Count 630 H (150-450) k/uL MPV 9.1 Neutrophils % 55 % Lymphocytes % 22 % Monocytes % 6 % Eosinophils % 12 % Basophils % 1 % Neutrophils # 2.6 (1.3-7.7) k/uL Lymphocytes # 1.0 (1.0-4.8) k/uL Monocytes # 0.3 (0-1.0) k/uL Eosinophils # 0.5 (0-0.7) k/uL Basophils # 0.0 (0-0.2) k/uL Poikilocytosis Slight Sodium 141 (137-145) mmol/L Potassium 2.7 L* (3.5-5.1) mmol/L Chloride 104 (98-107) mmol/L Carbon Dioxide 30 (22-30) mmol/L Anion Gap 7 mmol/L BUN 34 H (9-20) mg/dL Creatinine 1.46 H (0.66-1.25) mg/dL Est GFR (CKD-EPI)AfAm 58 (>60 ml/min/1.73 sqM) Est GFR (CKD-EPI)NonAf 51 (>60 ml/min/1.73 sqM) Glucose 112 H (74-99) mg/dL Calcium 8.7 (8.4-10.2) mg/dL Phosphorus 5.2 H (2.5-4.5) mg/dL Magnesium 2.5 H (1.6-2.3) mg/dL Total Bilirubin 0.8 (0.2-1.3) mg/dL AST 36 (17-59) U/L ALT 31 (4-49) U/L Alkaline Phosphatase 66 (38-126) U/L Total Protein 7.1 (6.3-8.2) g/dL Albumin 4.4 (3.5-5.0) g/dL Disposition Clinical Impression: Hypokalemia Disposition: HOME SELF-CARE Instructions (If sedation given, give patient instructions): Hypokalemia (ED) Additional Instructions: Return to the emergency department with any new, worsening, or concerning symptoms. Increase your potassium dose as instructed by your primary care provider to 20 mEq twice daily. Follow-up with your primary care provider for reevaluation and repeat blood work. Is patient prescribed a controlled substance at d/c from ED?: No Referrals: Sanjeev Spivey DO [Primary Care Provider] - 1-2 days Time of Disposition: 14:36
[2024-10-25 13:59] LABS: Basophils % (A) 1 %; Eosinophils # (A) 0.5 k/uL (0-0.7); Eosinophils % (A) 12 %; HCT 38.9 % (39.0-53.0); Lymphocytes % (A) 22 %; MCH 29.3 pg (25.0-35.0); MCHC 33.5 g/dL (31.0-37.0); MCV 87.4 fL (80.0-100.0); Mean Platelet Volume 9.1; Monocytes # (A) 0.3 k/uL (0-1.0); Monocytes % (A) 6 %; Neutrophils # (A) 2.6 k/uL (1.3-7.7); Neutrophils % (A) 55 %; Platelet Count 630 k/uL (150-450); Poikilocytosis Slight; RBC 4.45 m/uL (4.30-5.90); RDW 15.3 % (11.5-15.5); WBC 4.7 k/uL (3.8-10.6)
[2024-10-25 14:16] LABS: ALT 31 U/L (4-49); AST 36 U/L (17-59); African American GFR (CKD) 58 (>60 ml/min/1.73 sqM); Albumin 4.4 g/dL (3.5-5.0); Alkaline Phosphatase 66 U/L (38-126); Anion Gap 7 mmol/L; Blood Urea Nitrogen 34 mg/dL (9-20); Calcium 8.7 mg/dL (8.4-10.2); Carbon Dioxide 30 mmol/L (22-30); Chloride 104 mmol/L (98-107); Glucose 112 mg/dL (74-99); Magnesium 2.5 mg/dL (1.6-2.3); Non-African American GFR(CKD) 51 (>60 ml/min/1.73 sqM); Phosphorus 5.2 mg/dL (2.5-4.5); Sodium 141 mmol/L (137-145); Total Bilirubin 0.8 mg/dL (0.2-1.3); Total Protein 7.1 g/dL (6.3-8.2)
[2024-10-25 14:19] LABS: Potassium 2.7 mmol/L (3.5-5.1)
[2024-10-25] MEDS ORDERED: POTASSIUM CHLORIDE 20 MEQ in WATER FOR INJECTION 1 100ML.BAG IVPB STA (14:23)
[2024-10-25] MEDS: POTASSIUM CHLORIDE ER 20 MEQ TAB.ER PO STA ×2 (14:41)
[2024-10-25 14:48] VITALS: BP 197/79; PULSE 48; RESP 17; TEMP 98.1
== END 2024-10-25 14:54 | disposition home or self-care (01) ==
LOC: EC 11:16
DX: E87.6 Hypokalemia (principal); E11.9 Type 2 diabetes mellitus without complications; I10 Essential (primary) hypertension; J44.9 Chronic obstructive pulmonary disease, unspecified; I25.10 Atherosclerotic heart disease of native coronary artery without angina pectoris; G47.30 Sleep apnea, unspecified; Z86.73 Personal history of transient ischemic attack (TIA), and cerebral infarction without residual deficits
CPT/HCPCS: 36415; 80053; 83735; 84100; 85025; 93005; 99285

== ENCOUNTER → 2024-12-03 | Outpatient (CLI) | payer BC ==
[2024-12-03 23:38] LABS: Appearance,Urine Clear (Clear); Bilirubin,Urine Negative (Negative); Blood,Urine Negative (Negative); Color,Urine Yellow (Yellow); Ketones,Urine Trace (Negative); Nitrite,Urine Negative (Negative); PH, Urine 6.5; Specific Gravity,Urine 1.025 (1.001-1.030)
[2024-12-04 10:25] LABS: BUN/Creat Ratio 17.93 Ratio (12.00-20.00); Blood Urea Nitrogen 26.9 mg/dL (9.0-27.0); Chloride 104 mmol/L (96-109); Glucose 102 mg/dL (70-110); Phosphorus 4.3 mg/dL (2.4-5.1); Sodium 143 mmol/L (135-145)
[2024-12-04 10:26] LABS: Calcium 8.8 mg/dL (8.7-10.3); Carbon Dioxide 28.1 mmol/L (21.6-31.8)
== END | disposition home or self-care (01) ==
LOC: LABWHC1 10:44
PROVIDERS: ATTEND Internal Medicine
DX: N18.31 Chronic kidney disease, stage 3a (principal)
CPT/HCPCS: 36415; 80069; 81003; 82043; 82570; 83970

== ENCOUNTER → 2025-03-03 | Outpatient (CLI) | payer BC ==
[2025-03-03 19:01] LABS: Magnesium 2.2 mg/dL (1.5-2.4); Phosphorus 3.2 mg/dL (2.4-5.1)
[2025-03-03 19:11] LABS: Albumin 4.1 g/dL (3.8-4.9); BUN/Creat Ratio 22.53 Ratio (12.00-20.00); Blood Urea Nitrogen 33.8 mg/dL (9.0-27.0); Calcium 8.7 mg/dL (8.7-10.3); Carbon Dioxide 27.9 mmol/L (21.6-31.8); Chloride 108 mmol/L (96-109); Glucose 112 mg/dL (70-110); Potassium 2.8 mmol/L (3.5-5.5); Sodium 148 mmol/L (135-145)
[2025-03-03 20:05] LABS: Urine Creatinine 76.4 mg/dL (39.0-259.0)
[2025-03-03 20:26] LABS: Appearance,Urine Clear (Clear); Bilirubin,Urine Negative (Negative); Blood,Urine Trace (Negative); Color,Urine Yellow (Yellow); Ketones,Urine Negative (Negative); Nitrite,Urine Negative (Negative); Specific Gravity,Urine 1.021 (1.001-1.030)
[2025-03-03 20:36] LABS: Bacteria,Urine None Seen (None Seen)
== END | disposition home or self-care (01) ==
LOC: LABWHC1 13:56
PROVIDERS: ATTEND Internal Medicine
DX: E87.6 Hypokalemia (principal); N18.31 Chronic kidney disease, stage 3a; N39.0 Urinary tract infection, site not specified; N25.81 Secondary hyperparathyroidism of renal origin; R80.9 Proteinuria, unspecified
CPT/HCPCS: 36415; 80069; 81001; 82043; 82570; 83735; 83970